=== PATIENT | female | born 1940 | race Caucasian/White ===

== ENCOUNTER 2018-10-06 07:46 | Inpatient (IN) | payer MEDICARE, OTHER ==
[2018-10-11] MEDS ORDERED: Bisacodyl 10 MG Supp RECTAL PRN (20:32)
[2018-10-11] MEDS ORDERED: Carboxymethylcellulose Sodium 0.5% Ophth Soln 15 ML Bottle EYEBOTH PRN (20:32)
[2018-10-11] MEDS ORDERED: Magnesium Hydroxide 400 MG/5 ML Susp 30 ML Cup PO PRN (20:32)
[2018-10-11] MEDS ORDERED: Acetaminophen 500 MG Tab PO PRN (20:32)
[2018-10-11] MEDS ORDERED: Primidone 250 MG Tab PO SCH (21:00)
[2018-10-11] MEDS: Metoprolol Tartrate 25 MG Tab PO SCH (22:39)
[2018-10-11] MEDS: Acetaminophen/HYDROcodone 325-10 MG Tab PO PRN (22:40)
[2018-10-11] MEDS: Lutein/Minerals/Vitamins A, C & E Tab PO SCH (22:40)
[2018-10-11] MEDS: Cefdinir 300 MG Cap PO SCH (22:41)
[2018-10-12] MEDS: METFORMIN 750 MG PO SCH ×2 (01:50→20:21)
[2018-10-12] MEDS: PRIMIDONE 250 MG PO SCH ×3 (01:54→20:21)
[2018-10-12] MEDS ORDERED: Levothyroxine 100 MCG Tab PO SCH (07:00)
[2018-10-12] MEDS ORDERED: Levothyroxine 25 MCG Tab PO SCH (07:30)
[2018-10-12] MEDS: Levothyroxine 100 MCG Tab PO SCH (07:44)
[2018-10-12] MEDS: Metoprolol Tartrate 25 MG Tab PO SCH ×2 (08:08→20:21)
[2018-10-12] MEDS: Cefdinir 300 MG Cap PO SCH ×2 (08:08→20:20)
[2018-10-12] MEDS: Clopidogrel 75 MG Tab PO SCH (08:08)
[2018-10-12] MEDS: Sertraline 50 MG Tab PO SCH (08:08)
[2018-10-12] MEDS: Cholecalciferol (Vitamin D3) 1,000 Unit Tab PO SCH (08:08)
[2018-10-12] MEDS: atorvaSTATin 40 MG Tab PO SCH (08:08)
[2018-10-12] MEDS: Lutein/Minerals/Vitamins A, C & E Tab PO SCH ×2 (08:08→20:20)
[2018-10-12] MEDS: Lisinopril 5 MG Tab PO SCH (08:08)
[2018-10-12] MEDS: Acetaminophen/HYDROcodone 325-10 MG Tab PO PRN ×2 (08:08→18:57)
[2018-10-12] MEDS: Aspirin 81 MG Tab.EC PO SCH (08:08)
[2018-10-12] MEDS ORDERED: Ferrous Sulfate 325 MG Tab PO SCH (09:00)
[2018-10-12] MEDS ORDERED: [UNRECOGNIZED DRUG - REMARK] PO SCH (09:00)
[2018-10-12] MEDS ORDERED: B COMPLEX WITH VITAMIN C PO SCH (09:00)
[2018-10-12] MEDS ORDERED: Cranberry Ext/C/L. Sporogenes Tab PO SCH (09:00)
[2018-10-12] MEDS ORDERED: FLAXSEED OIL 1000 MG PO SCH (09:00)
--- NOTE | 2018-10-12 12:54 | PCM.HP ---
H&P History of Present Illness - General Date of Service: 10/12/18 Admit Problem/Dx: Admission Diagnosis/Problem Admission Diagnosis/Problem Debility Source of Information: Patient, Old Records, RN Notes Reviewed History Limitations: Reports: No Limitations - History of Present Illness Initial Comments - Free Text/Narative: Kalyn is a 78-year-old female admitted to swing bed status from [facility] in [place], [place], for mcc stay for physical rehabilitation status post right total knee arthroplasty, which was performed on 10/03/18. Her subsequent hospital course at [facility] was complicated by an STEMI on with subsequent stent placement. This morning, she states she is doing well without any concerns. She has had improvement in mobility. She denies any cardiopulmonary symptoms. Tolerating diet well. - Related Data Allergies/Adverse Reactions: Allergies Allergy/AdvReac Type Severity Reaction Status Date / Time amantadine Allergy Other Verified 10/11/18 17:44 levetiracetam [From Keppra] Allergy Other Verified 10/11/18 17:44 nitrofurantoin Allergy Burning on Verified 10/11/18 17:44 [From Macrobid] Urination sulfasalazine Allergy Burning on Verified 10/11/18 17:44 Urination Home Medications: Home Meds Aspirin [Halfprin] 81 mg PO DAILY 06/03/18 [History] B-Complex with Vitamin C [Super B Complex-Vitamin C] 1 each PO DAILY 06/03/18 [ History] Cholecalciferol (Vitamin D3) [Vitamin D3] 2,000 unit PO DAILY 06/03/18 [History] Cranberry Conc/C/Bacill Coag [Cranberry Tablet] 1 each PO DAILY 06/03/18 [ History] Flaxseed Oil [Flaxseed] 1,000 mg PO DAILY 06/03/18 [History] Levothyroxine 200 mcg PO ACBRK 06/03/18 [History] Plant Stanol Susan [Cholest Off] 450 mg PO DAILY 06/03/18 [History] Primidone 250 mg PO DAILY 06/03/18 [History] Sertraline [Zoloft] 100 mg PO DAILY 06/03/18 [History] metFORMIN [Glucophage XR] 500 mg PO BEDTIME 06/03/18 [History] Acetaminophen [Acetaminophen Extra Strength] 1,000 mg PO Q6HR PRN 10/11/18 [ History] Bisacodyl [Dulcolax] 10 mg RC BID PRN 10/11/18 [History] Cefdinir 300 mg PO BID 10/11/18 [History] Clopidogrel [Plavix] 75 mg PO DAILY 10/11/18 [History] Ferrous Sulfate 325 mg PO DAILY 10/11/18 [History] Hydrocodone/Acetaminophen [Flagler 10-325 Tablet] 10 mg PO Q4HR PRN 10/11/18 [ History] Levothyroxine 25 mcg PO ACBREAKFAST 10/11/18 [History] Lisinopril 5 mg PO DAILY 10/11/18 [History] Lutein/Min/Vit C/Vit E Acetate [Ocuvite Lutein] 1 tab PO BID 10/11/18 [History] Magnesium Hydroxide [Milk of Magnesia] 30 ml PO BID PRN 10/11/18 [History] Metoprolol Tartrate 25 mg PO BID 10/11/18 [History] Primidone 500 mg PO BEDTIME 10/11/18 [History] Propylene Glycol/PEG 400/Pf [Systane Ultra 0.4-0.3% Eye Drp] 1 each OP QID PRN 10/11/18 [History] Sennosides/Docusate Sodium [Senokot-S Tablet] 2 each PO DAILY 10/11/18 [History] atorvaSTATin [Lipitor] 40 mg PO DAILY 10/11/18 [History] traMADol [Ultram] 50 mg PO Q6H PRN 10/11/18 [History] Past Medical History HEENT History: Reports: Impaired Vision Cardiovascular History: Reports: High Cholesterol, [place] Gastrointestinal History: Reports: [employer] History: Reports: Musculoskeletal History: Reports: Fracture Neurological History: Reports: Seizure Endocrine/Metabolic History: Reports: Diabetes, Type II - Past Surgical History Cardiovascular Surgical History: Reports: Other (See Below) Other Cardiovascular Surgeries/Procedures: September 2018 GI Surgical History: Reports: Other (See Below) Other GI Surgeries/Procedures: esophageal wrap Endocrine Surgical History: Reports: None Neurological Surgical History: Reports: None Musculoskeletal Surgical History: Reports: Knee Replacement, Other (See Below) Other Musculoskeletal Surgeries/Procedures:: R knee Social & Family History - Family History Cardiac: Reports: CAD Neurological: Reports: Parkinson's Oncologic: Reports: Prostate - Tobacco Use Smoking Status *Q: Never Smoker - Caffeine Use Caffeine Use: Reports: Energy Drinks, Tea, Other Other Caffeine Use: 1/2 can of Mountain Dew a day - Recreational Drug Use Recreational Drug Use: No H&P Review of Systems - Review of Systems: Review Of Systems: See Below General: Reports: Weakness. Denies: Fever, Chills, Malaise, Fatigue, Decreased Appetite HEENT: Denies: Dysphasia, Headaches, Sore Throat Pulmonary: Denies: Shortness of Breath, Pleuritic Chest Pain, Cough Cardiovascular: Denies: Chest Pain, Palpitations, Orthopnea, Edema, Lightheadedness Gastrointestinal: Denies: Abdominal Pain, Black Stool, Bloody Stool, Constipation, Diarrhea, Decreased Appetite, Nausea, Vomiting Genitourinary: Denies: Dysuria, Frequency, Burning, Pain Musculoskeletal: Denies: Neck Pain, Shoulder Pain, Arm Pain Skin: Reports: Wound. Denies: Cyanosis, Jaundice Psychiatric: Denies: Confusion, Depression, Anxiety Neurological: Denies: Confusion, Dizziness, Headache, Numbness, Paresthesia Exam - Exam Exam: See Below - Vital Signs Vital Signs: Last Vital Signs Temp 37.1 C 10/12/18 06:07 Pulse 80 10/12/18 08:08 Resp 16 10/12/18 06:07 BP 142/75 H 10/12/18 08:08 Pulse Ox 97 10/12/18 07:56 Weight: 75.931 kg - Exam Physical Exam Comments:: GENERAL: Well-appearing elderly white female sitting in bedside chair in no acute distress. HEENT: Normocephalic, atraumatic. Conjunctiva clear. Nares patent without discharge. Mucous membranes moist, posterior pharynx unremarkable. NECK: Supple, no masses. CV: Regular rate and rhythm, no murmurs, rubs, or gallops. 2+ radial pulses. PULMONARY: Normal effort, clear to auscultation bilaterally, no wheezes, rales, or rhonchi. ABDOMEN: Positive bowel sounds, soft, nontender, nondistended. EXTREMITIES: No edema, cyanosis, or clubbing. MUSCULOSKELETAL: Moves all extremities well. NEUROLOGICAL: Facial and voice tremor.No obvious deficits. DERMATOLOGIC: No rashes or suspicious lesions in exposed areas. PSYCHIATRIC: Alert, interactive, appropriate affect. Problem List Initiated/Reviewed/Updated: Yes Orders Last 24hrs: Active Orders 24 hr Category Date Time Status Patient Status [ADT] Routine ADT 10/11/18 20:41 Ordered Antiembolic Devices [RC] .Routine Care 10/12/18 02:14 Active Communication Order [RC] DAILY Care 10/12/18 02:09 Active Communication Order [RC] DAILY Care 10/12/18 02:11 Active Height and Weight [RC] We@0700 Care 10/11/18 20:43 Active Intake and Output [RC] 1400,2200,0600 Care 10/11/18 20:44 Active Oxygen Therapy [RC] PRN Care 10/11/18 20:41 Active Up ad Gricelda [RC] ASDIRECTED Care 10/11/18 20:41 Active VTE/DVT Education [RC] PER UNIT ROUTINE Care 10/11/18 20:41 Active Vital Signs [RC] 0700,1900 Care 10/11/18 20:41 Active PT Evaluation and Treatment [CONS] Routine Cons 10/11/18 20:41 Active Heart Healthy Diet [DIET] Diet 10/12/18 Breakfast Active Acetaminophen [Tylenol Extra Strength] Med 10/11/18 20:32 Active 1,000 mg PO Q6HR PRN Acetaminophen/HYDROcodone [Flagler 325-10 MG] Med 10/11/18 20:32 Active 1 tab PO Q4HR PRN Aspirin [Halfprin] Med 10/12/18 09:00 Active 81 mg PO DAILY Bisacodyl [Dulcolax] Med 10/11/18 20:32 Active 10 mg RECTAL BID PRN Carboxymethylcellulose Sodium [Refresh Tears 0.5%] Med 10/11/18 20:32 Active 0 ml EYEBOTH QID PRN Cefdinir [Omnicef] Med 10/11/18 21:00 Active 300 mg PO BID Cholecalciferol (Vitamin D3) [Vitamin D3] Med 10/12/18 09:00 Active 2,000 units PO DAILY Clopidogrel [Plavix] Med 10/12/18 09:00 Active 75 mg PO DAILY Cranberry Ext/C/L. Sporogenes [Azo Cranberry] Med 10/12/18 09:00 Active 1 each PO DAILY Docusate Sodium/Sennosides [Senna Plus] Med 10/12/18 09:00 Active 2 tab PO DAILY Ferrous Sulfate Med 10/12/18 09:00 Active 325 mg PO DAILY Levothyroxine Med 10/12/18 07:30 Active 25 mcg PO ACBREAKFAST Levothyroxine [Synthroid] Med 10/12/18 07:30 Active 200 mcg PO ACBREAKFAST Lisinopril [Prinivil] Med 10/12/18 09:00 Active 5 mg PO DAILY Lutein/Minerals/Vit A,C & E [Ocuvite] Med 10/11/18 21:00 Active 1 each PO BID Magnesium Hydroxide [Milk of Magnesia] Med 10/11/18 20:32 Active 30 ml PO BID PRN Metoprolol Tartrate [Lopressor] Med 10/11/18 21:00 Active 25 mg PO BID Primidone [Mysoline] Med 10/12/18 09:00 Active 250 mg PO DAILY Primidone [Mysoline] Med 10/11/18 23:45 Active 500 mg PO BEDTIME Sertraline [Zoloft] Med 10/12/18 09:00 Active 100 mg PO DAILY atorvaSTATin [Lipitor] Med 10/12/18 09:00 Active 40 mg PO DAILY metFORMIN [Glucophage XR] Med 10/11/18 21:00 Active 500 mg PO BEDTIME traMADol [Ultram] Med 10/11/18 20:32 Active 50 mg PO Q6H PRN Ice Pack [Ice Therapy] [OM.PC] Routine Oth 10/12/18 02:13 Ordered Resuscitation Status Routine Resus Stat 10/11/18 20:35 Ordered Medication Orders Acetaminophen (Tylenol Extra Strength) 1,000 mg PO Q6HR PRN PRN Reason: Pain Last Admin: 10/11/18 22:40 Dose: 1,000 mg Hydrocodone Bitart/Acetaminophen (Flagler 325-10 Mg) 1 tab PO Q4HR PRN PRN Reason: Pain Last Admin: 10/12/18 08:08 Dose: 1 tab Admin: 10/11/18 22:40 Dose: 1 tab Artificial Tears (Refresh Tears 0.5%) 0 ml EYEBOTH QID PRN PRN Reason: Dry Eyes Last Admin: 10/11/18 22:46 Dose: 1 drop Aspirin (Halfprin) 81 mg PO DAILY [facility] Last Admin: 10/12/18 08:08 Dose: 81 mg Atorvastatin Calcium (Lipitor) 40 mg PO DAILY [facility] Last Admin: 10/12/18 08:08 Dose: 40 mg Bisacodyl (Dulcolax) 10 mg RECTAL BID PRN PRN Reason: Constipation Cefdinir (Omnicef) 300 mg PO BID [facility] Last Admin: 10/12/18 08:08 Dose: 300 mg Admin: 10/11/18 22:41 Dose: 300 mg Cholecalciferol (Vitamin D3) 2,000 units PO DAILY [facility] Last Admin: 10/12/18 08:08 Dose: 2,000 units Clopidogrel Bisulfate (Plavix) 75 mg PO DAILY [facility] Last Admin: 10/12/18 08:08 Dose: 75 mg Cranberry (Azo Cranberry) 1 each PO DAILY [facility] Last Admin: 10/12/18 08:07 Dose: Ferrous Sulfate (Ferrous Sulfate) 325 mg PO DAILY [facility] Last Admin: 10/12/18 08:08 Dose: 325 mg Levothyroxine Sodium (Levothyroxine) 25 mcg PO ACBREAKFAST [facility] Last Admin: 10/12/18 07:44 Dose: 25 mcg Levothyroxine Sodium (Synthroid) 200 mcg PO ACBREAKFAST [facility] Last Admin: 10/12/18 07:44 Dose: 200 mcg Lisinopril (Prinivil) 5 mg PO DAILY [facility] Last Admin: 10/12/18 08:08 Dose: 5 mg Magnesium Hydroxide (Milk Of Magnesia) 30 ml PO BID PRN PRN Reason: Constipation Last Admin: 10/11/18 22:44 Dose: 30 ml Metformin HCl (Glucophage Xr) 500 mg PO BEDTIME [facility] Last Admin: 10/12/18 01:50 Dose: Metoprolol Tartrate (Lopressor) 25 mg PO BID [facility] Last Admin: 10/12/18 08:08 Dose: 25 mg Admin: 10/11/18 22:39 Dose: 25 mg Multivitamins/Minerals (Ocuvite) 1 each PO BID [facility] Last Admin: 10/12/18 08:08 Dose: 1 each Admin: 10/11/18 22:40 Dose: 1 each Primidone (Mysoline) 250 mg PO DAILY [facility] Last Admin: 10/12/18 08:09 Dose: 250 mg Primidone (Mysoline) 500 mg PO BEDTIME [facility] Last Admin: 10/12/18 01:54 Dose: 500 mg Senna/Docusate Sodium (Senna Plus) 2 tab PO DAILY [facility] Last Admin: 10/12/18 08:08 Dose: 2 tab Sertraline HCl (Zoloft) 100 mg PO DAILY [facility] Last Admin: 10/12/18 08:08 Dose: 100 mg Tramadol HCl (Ultram) 50 mg PO Q6H PRN PRN Reason: Pain Assessment/Plan Comment:: HPI summary: Kalyn is a 78-year-old female admitted to swing bed status from [facility] in [place], [place], a for mcc stay for physical rehabilitation status post right total knee arthroplasty, which was performed on 10/03/18. Her subsequent hospital course at [facility] was complicated by an NSTEMI on 10/05/18 with subsequent stent placement. Hospitalization problems: # Debility s/p R TKA: Surgery 10/03/18 at [facility]. Physical therapy referral. Remove Aquacel on 10/14/18. Remove luisito on 10/18/18. Orthopedic surgery follow-up to be coordinated with Dr. Foster locally. Chronic, stable conditions: # Hx NSTEMI: 10/05/18 with chest pain and elevated troponin >3. 10/07/18 catheterization with 3 vessel disease with proximal left main stenosis. 10/09/18 catheterization with stenting of mid and proximal LAD and diagonal arteries with Resolute JAN. Continue DAPT with clopidogrel and ASA x1 year. Also continue beta minh and ACEI. Plan for cardiac rehab referral at discharge. # Aortic atherosclerosis: 10/06/18 JIMMY with visualized plaque in ascending/ transverse/descending aorta. # Ischemic cardiomyopathy: 10/05/18 echo with EF 40-45% and severe hypokinesis of anterior/anteroseptal/apex. # Pulmonary HTN: 10/05/18 echo with RVSP 68mmHg. # DMT2: 09/18/18 A1c 5.5%. [id number] was restarted during hospitalization, but will be discontinued again due to not even being in the pre -diabetic range. # HLD: Atorvastatin 40mg. # Hypothyroidism: 09/18/18 TSH 0.20 when dose was last adjusted. Levothyroxine 200mcg. # Vitamin D deficiency: Vitamin D supplementation. # Thrombocytopenia: Chronically in thelow-100s. # Epilepsy/ Essential tremor: Primidone. Seizure free since 2000. # Depression:[id number]. Well controlled. # Macular degeneration: Per ophthalmology. Hospitalization details: # FEN: No IVF. Electrolytes normal at discharge. Heart healthy diet. # PPX: DAPT and ambulation; no other pharmacologic DVT ppx. Melatonin for delirium ppx. # Code status: DNR/DNI. # Emergency contact: , Bryan. # Disposition: Admit to significant status for debility. Anticipate eventual discharge to assisted living facility where she has previously lived.
[2018-10-12] MEDS: traMADol 50 MG Tab PO PRN (13:11)
[2018-10-12] MEDS ORDERED: Polyethylene Glycol 3350 Powder 17 GM Packet PO PRN (22:27)
[2018-10-13] MEDS: Acetaminophen/HYDROcodone 325-10 MG Tab PO PRN ×4 (00:34→23:08)
[2018-10-13] MEDS: Levothyroxine 100 MCG Tab PO SCH (07:58)
[2018-10-13 08:39] LABS: CHLORIDE,CL 103 mmol/L (98-115); SODIUM,NA 138 mmol/L (136-145)
[2018-10-13] MEDS: Sertraline 50 MG Tab PO SCH (09:02)
[2018-10-13] MEDS: Clopidogrel 75 MG Tab PO SCH (09:02)
[2018-10-13] MEDS: Cholecalciferol (Vitamin D3) 1,000 Unit Tab PO SCH (09:02)
[2018-10-13] MEDS: Lisinopril 5 MG Tab PO SCH (09:02)
[2018-10-13] MEDS: atorvaSTATin 40 MG Tab PO SCH (09:02)
[2018-10-13] MEDS: Metoprolol Tartrate 25 MG Tab PO SCH ×2 (09:02→20:24)
[2018-10-13] MEDS: Aspirin 81 MG Tab.EC PO SCH (09:02)
[2018-10-13] MEDS: Lutein/Minerals/Vitamins A, C & E Tab PO SCH ×2 (09:02→20:26)
[2018-10-13] MEDS: Cefdinir 300 MG Cap PO SCH (09:06)
[2018-10-13] MEDS: PRIMIDONE 250 MG PO SCH ×2 (09:07→20:29)
[2018-10-13] MEDS: traMADol 50 MG Tab PO PRN ×2 (13:42→20:25)
[2018-10-14] MEDS: traMADol 50 MG Tab PO PRN ×4 (02:02→22:55)
[2018-10-14] MEDS: Melatonin 3 MG Tab PO PRN ×2 (02:07→22:43)
[2018-10-14] MEDS: Metoprolol Tartrate 25 MG Tab PO SCH ×2 (09:43→22:56)
[2018-10-14] MEDS: atorvaSTATin 40 MG Tab PO SCH (09:43)
[2018-10-14] MEDS: Clopidogrel 75 MG Tab PO SCH (09:43)
[2018-10-14] MEDS: Lisinopril 5 MG Tab PO SCH (09:43)
[2018-10-14] MEDS: Cholecalciferol (Vitamin D3) 1,000 Unit Tab PO SCH (09:43)
[2018-10-14] MEDS: Lutein/Minerals/Vitamins A, C & E Tab PO SCH ×2 (09:43→20:32)
[2018-10-14] MEDS: Aspirin 81 MG Tab.EC PO SCH (09:43)
[2018-10-14] MEDS: Sertraline 50 MG Tab PO SCH (09:44)
[2018-10-14] MEDS: PRIMIDONE 250 MG PO SCH ×2 (09:45→20:32)
[2018-10-14] MEDS: Ferrous Sulfate 325 MG Tab PO SCH (09:50)
[2018-10-14] MEDS: Levothyroxine 100 MCG Tab PO SCH ×2 (11:05→11:07)
[2018-10-14] MEDS: Acetaminophen/HYDROcodone 325-10 MG Tab PO PRN ×2 (11:56→20:27)
[2018-10-14] MEDS: Diclofenac Sodium 1% Gel 100 GM Tube TOP PRN ×2 (11:56→22:47)
[2018-10-15] MEDS: Acetaminophen/HYDROcodone 325-10 MG Tab PO PRN ×2 (00:47→05:02)
[2018-10-15] MEDS: Levothyroxine 100 MCG Tab PO SCH (07:41)
[2018-10-15] MEDS: PRIMIDONE 250 MG PO SCH ×2 (08:48→20:32)
[2018-10-15] MEDS: Lutein/Minerals/Vitamins A, C & E Tab PO SCH ×2 (08:48→20:32)
[2018-10-15] MEDS: Metoprolol Tartrate 25 MG Tab PO SCH ×2 (08:48→20:29)
[2018-10-15] MEDS: Sertraline 50 MG Tab PO SCH (08:49)
[2018-10-15] MEDS: Cholecalciferol (Vitamin D3) 1,000 Unit Tab PO SCH (08:49)
[2018-10-15] MEDS: atorvaSTATin 40 MG Tab PO SCH (08:49)
[2018-10-15] MEDS: Aspirin 81 MG Tab.EC PO SCH (08:49)
[2018-10-15] MEDS: Clopidogrel 75 MG Tab PO SCH (08:49)
[2018-10-15] MEDS: Lisinopril 5 MG Tab PO SCH (08:49)
[2018-10-15] MEDS ORDERED: oxyCODONE 5 MG Tab PO PRN (11:34)
[2018-10-15] MEDS: Acetaminophen 500 MG Tab PO SCH ×2 (11:41→21:56)
[2018-10-15] MEDS ORDERED: Trolamine Salicylate/Aloe Vera 10% Crm 85 GM Tube TOP PRN (11:58)
[2018-10-15] MEDS: traMADol 50 MG Tab PO SCH ×2 (14:54→21:57)
[2018-10-16] MEDS: traMADol 50 MG Tab PO SCH ×3 (06:12→20:59)
[2018-10-16] MEDS: Levothyroxine 100 MCG Tab PO SCH (07:51)
[2018-10-16] MEDS: Sertraline 50 MG Tab PO SCH (08:27)
[2018-10-16] MEDS: atorvaSTATin 40 MG Tab PO SCH (08:27)
[2018-10-16] MEDS: Lutein/Minerals/Vitamins A, C & E Tab PO SCH ×2 (08:28→20:27)
[2018-10-16] MEDS: Clopidogrel 75 MG Tab PO SCH (08:28)
[2018-10-16] MEDS: Aspirin 81 MG Tab.EC PO SCH (08:29)
[2018-10-16] MEDS: Cholecalciferol (Vitamin D3) 1,000 Unit Tab PO SCH (08:29)
[2018-10-16] MEDS: Lisinopril 5 MG Tab PO SCH (08:30)
[2018-10-16] MEDS: Metoprolol Tartrate 25 MG Tab PO SCH ×2 (08:32→20:27)
[2018-10-16] MEDS: PRIMIDONE 250 MG PO SCH ×2 (08:33→20:58)
[2018-10-16] MEDS: Ferrous Sulfate 325 MG Tab PO SCH (08:37)
[2018-10-16] MEDS: Acetaminophen 500 MG Tab PO SCH ×3 (10:35→21:00)
[2018-10-17] MEDS: traMADol 50 MG Tab PO SCH ×3 (06:15→21:15)
[2018-10-17] MEDS: Levothyroxine 100 MCG Tab PO SCH (07:31)
[2018-10-17] MEDS: Metoprolol Tartrate 25 MG Tab PO SCH ×2 (08:28→21:16)
[2018-10-17] MEDS: Clopidogrel 75 MG Tab PO SCH (08:28)
[2018-10-17] MEDS: atorvaSTATin 40 MG Tab PO SCH (08:28)
[2018-10-17] MEDS: Cholecalciferol (Vitamin D3) 1,000 Unit Tab PO SCH (08:28)
[2018-10-17] MEDS: Lutein/Minerals/Vitamins A, C & E Tab PO SCH ×2 (08:28→21:16)
[2018-10-17] MEDS: Lisinopril 5 MG Tab PO SCH (08:28)
[2018-10-17] MEDS: Sertraline 50 MG Tab PO SCH (08:28)
[2018-10-17] MEDS: Aspirin 81 MG Tab.EC PO SCH (08:28)
[2018-10-17] MEDS: PRIMIDONE 250 MG PO SCH ×2 (08:29→21:14)
[2018-10-17] MEDS: Acetaminophen 500 MG Tab PO SCH ×2 (09:55→21:15)
[2018-10-18] MEDS: traMADol 50 MG Tab PO SCH ×3 (06:04→21:11)
[2018-10-18] MEDS: Levothyroxine 100 MCG Tab PO SCH (06:29)
[2018-10-18] MEDS: Aspirin 81 MG Tab.EC PO SCH (08:27)
[2018-10-18] MEDS: Cholecalciferol (Vitamin D3) 1,000 Unit Tab PO SCH (08:27)
[2018-10-18] MEDS: Metoprolol Tartrate 25 MG Tab PO SCH ×2 (08:27→20:33)
[2018-10-18] MEDS: Sertraline 50 MG Tab PO SCH (08:27)
[2018-10-18] MEDS: Clopidogrel 75 MG Tab PO SCH (08:27)
[2018-10-18] MEDS: Lutein/Minerals/Vitamins A, C & E Tab PO SCH ×2 (08:27→20:33)
[2018-10-18] MEDS: atorvaSTATin 40 MG Tab PO SCH (08:27)
[2018-10-18] MEDS: Lisinopril 5 MG Tab PO SCH (08:27)
[2018-10-18] MEDS: PRIMIDONE 250 MG PO SCH ×2 (08:28→20:34)
[2018-10-18] MEDS: Ferrous Sulfate 325 MG Tab PO SCH ×2 (08:29→08:36)
[2018-10-18] MEDS: Acetaminophen 500 MG Tab PO SCH ×2 (10:02→21:11)
[2018-10-19] MEDS: traMADol 50 MG Tab PO SCH ×3 (06:29→21:02)
[2018-10-19] MEDS: Levothyroxine 100 MCG Tab PO SCH (06:29)
[2018-10-19] MEDS: Cholecalciferol (Vitamin D3) 1,000 Unit Tab PO SCH (08:14)
[2018-10-19] MEDS: Metoprolol Tartrate 25 MG Tab PO SCH ×2 (08:15→21:02)
[2018-10-19] MEDS: Lisinopril 5 MG Tab PO SCH (08:15)
[2018-10-19] MEDS: Sertraline 50 MG Tab PO SCH (08:15)
[2018-10-19] MEDS: Lutein/Minerals/Vitamins A, C & E Tab PO SCH ×2 (08:15→21:02)
[2018-10-19] MEDS: atorvaSTATin 40 MG Tab PO SCH (08:15)
[2018-10-19] MEDS: PRIMIDONE 250 MG PO SCH ×2 (08:15→21:01)
[2018-10-19] MEDS: Clopidogrel 75 MG Tab PO SCH (08:15)
[2018-10-19] MEDS: Aspirin 81 MG Tab.EC PO SCH (08:15)
[2018-10-19] MEDS: Acetaminophen 500 MG Tab PO SCH ×2 (09:51→21:03)
[2018-10-20] MEDS: Levothyroxine 100 MCG Tab PO SCH (06:40)
[2018-10-20] MEDS: traMADol 50 MG Tab PO SCH (06:40)
[2018-10-20] MEDS: Cholecalciferol (Vitamin D3) 1,000 Unit Tab PO SCH (08:54)
[2018-10-20] MEDS: Sertraline 50 MG Tab PO SCH (08:54)
[2018-10-20] MEDS: Metoprolol Tartrate 25 MG Tab PO SCH (08:54)
[2018-10-20] MEDS: Clopidogrel 75 MG Tab PO SCH (08:54)
[2018-10-20] MEDS: Acetaminophen 500 MG Tab PO SCH ×2 (08:54→09:01)
[2018-10-20] MEDS: Lisinopril 5 MG Tab PO SCH (08:55)
[2018-10-20] MEDS: atorvaSTATin 40 MG Tab PO SCH (08:55)
[2018-10-20] MEDS: Lutein/Minerals/Vitamins A, C & E Tab PO SCH (08:55)
[2018-10-20] MEDS: Aspirin 81 MG Tab.EC PO SCH (08:55)
[2018-10-20] MEDS: Ferrous Sulfate 325 MG Tab PO SCH (08:58)
[2018-10-20] MEDS: PRIMIDONE 250 MG PO SCH (09:01)
--- NOTE | 2018-10-20 12:02 | PCM.PN ---
- General Info Date of Service: 10/20/18 Admission Dx/Problem (Free Text): Admission Diagnosis/Problem Admission Diagnosis/Problem Debility Subjective Update: Doing well. Pain well controlled. Therapy progressing nicely with ROM. Functional Status: Reports: Pain Controlled - Review of Systems General: Reports: No Symptoms Skin: Reports: Bruising, Other (Incision C/D/I, mild/moderate swelling. AROM 0- 100. Moderate ecchymosis.) - Patient Data Vitals - Most Recent: Last Vital Signs Temp 99.0 F 10/20/18 07:00 Pulse 81 10/20/18 08:54 Resp 16 10/20/18 07:00 BP 135/67 10/20/18 08:55 Pulse Ox 94 L 10/20/18 07:00 Weight - Most Recent: 158 lb 4 oz I&O - Last 24 Hours: Intake & Output 10/19/18 10/20/18 10/20/18 22:59 06:59 14:59 Intake Total 540 50 Balance 540 50 Med Orders - Current: Current Medications Acetaminophen (Tylenol Extra Strength) 1,000 mg PO Q12H [facility] Last Admin: 10/20/18 09:01 Dose: Not Given Artificial Tears (Refresh Tears 0.5%) 0 ml EYEBOTH QID PRN PRN Reason: Dry Eyes Last Admin: 10/11/18 22:46 Dose: 1 drop Aspirin (Halfprin) 81 mg PO DAILY [facility] Last Admin: 10/20/18 08:55 Dose: 81 mg Atorvastatin Calcium (Lipitor) 40 mg PO DAILY [facility] Last Admin: 10/20/18 08:55 Dose: 40 mg Bisacodyl (Dulcolax) 10 mg RECTAL BID PRN PRN Reason: Constipation Cholecalciferol (Vitamin D3) 2,000 units PO DAILY [facility] Last Admin: 10/20/18 08:54 Dose: 2,000 units Clopidogrel Bisulfate (Plavix) 75 mg PO DAILY [facility] Last Admin: 10/20/18 08:54 Dose: 75 mg Ferrous Sulfate (Ferrous Sulfate) 325 mg PO Q2D [facility] Last Admin: 10/20/18 08:58 Dose: 325 mg Levothyroxine Sodium (Synthroid) 200 mcg PO ACBREAKFAST [facility] Last Admin: 10/20/18 06:40 Dose: 200 mcg Lisinopril (Prinivil) 5 mg PO DAILY [facility] Last Admin: 10/20/18 08:55 Dose: 5 mg Melatonin (Melatonin) 3 mg PO BEDTIME PRN PRN Reason: Insomnia Last Admin: 10/14/18 22:43 Dose: 3 mg Metoprolol Tartrate (Lopressor) 25 mg PO BID [facility] Last Admin: 10/20/18 08:54 Dose: 25 mg Multivitamins/Minerals (Ocuvite) 1 each PO BID [facility] Last Admin: 10/20/18 08:55 Dose: 1 each Oxycodone HCl (Oxycodone) 5 mg PO Q6H PRN PRN Reason: Pain Polyethylene Glycol (Miralax) 17 gm PO BEDTIME PRN PRN Reason: Constipation Primidone (Mysoline) 250 mg PO DAILY [facility] Last Admin: 10/20/18 09:01 Dose: 250 mg Primidone (Mysoline) 500 mg PO BEDTIME [facility] Last Admin: 10/19/18 21:01 Dose: 500 mg Senna/Docusate Sodium (Senna Plus) 2 tab PO DAILY [facility] Last Admin: 10/20/18 08:54 Dose: 2 tab Sertraline HCl (Zoloft) 100 mg PO DAILY [facility] Last Admin: 10/20/18 08:54 Dose: 100 mg Tramadol HCl (Ultram) 50 mg PO Q8H [facility] Last Admin: 10/20/18 06:40 Dose: 50 mg Trolamine Salicylate (Aspercreme 10%) 0 gm TOP Q1H PRN PRN Reason: Pain Discontinued Medications Acetaminophen (Tylenol Extra Strength) 1,000 mg PO Q6HR PRN PRN Reason: Pain Last Admin: 10/11/18 22:40 Dose: 1,000 mg Hydrocodone Bitart/Acetaminophen (Ross 325-10 Mg) 1 tab PO Q4HR PRN PRN Reason: Pain Last Admin: 10/15/18 05:02 Dose: 1 tab Cefdinir (Omnicef) 300 mg PO BID [facility] Last Admin: 10/13/18 09:06 Dose: 300 mg Cranberry (Azo Cranberry) 1 each PO DAILY [facility] Last Admin: 10/12/18 08:07 Dose: Not Given Diclofenac Sodium (Voltaren 1% Gel) 0 gm TOP QID PRN PRN Reason: Pain Last Admin: 10/14/18 22:47 Dose: 1 applic Ferrous Sulfate (Ferrous Sulfate) 325 mg PO DAILY [facility] Last Admin: 10/12/18 08:08 Dose: 325 mg Levothyroxine Sodium (Levothyroxine) 25 mcg PO ACBREAKFAST [facility] Last Admin: 10/12/18 07:44 Dose: 25 mcg Levothyroxine Sodium (Synthroid) 200 mcg PO ACBREAKFAST [facility] Last Admin: 10/14/18 11:07 Dose: Not Given Magnesium Hydroxide (Milk Of Magnesia) 30 ml PO BID PRN PRN Reason: Constipation Last Admin: 10/11/18 22:44 Dose: 30 ml Metformin HCl (Glucophage Xr) 500 mg PO BEDTIME [facility] Last Admin: 10/12/18 20:21 Dose: Not Given Primidone (Mysoline) 500 mg PO BEDTIME [facility] Last Admin: 10/12/18 07:10 Dose: Not Given Tramadol HCl (Ultram) 50 mg PO Q6H PRN PRN Reason: Pain Last Admin: 10/14/18 22:55 Dose: 50 mg - Exam General: Alert, Oriented, No Acute Distress Extremities: Joint Swelling (mild/moderate), Limited Range of Motion (0-100 AROM ). No: Increased Warmth, Redness Skin: Warm, Dry, Intact Wound/Incisions: Healing Well, Dressing Dry and Intact, No Drainage. No: Erythema Neurological: No New Focal Deficit Psy/Mental Status: Alert, Normal Affect, Normal Mood - Problem List Review Problem List Initiated/Reviewed/Updated: Yes - Assessment Assessment:: s/p RTKA - Plan Plan:: HPI summary: Kalyn is a 78-year-old female admitted to swing bed status from [facility] in [place], [place], a for shelter stay for physical rehabilitation status post right total knee arthroplasty, which was performed on 10/03/18. Her subsequent hospital course at [facility] was complicated by an NSTEMI on 10/05/18 with subsequent stent placement. Hospitalization problems: # Debility s/p R TKA: Surgery 10/03/18 at [facility]. Physical therapy referral. Remove Aquacel on 10/14/18. Remove luisito on 10/18/18. Orthopedic surgery follow-up to be coordinated with Dr. Foster locally. Chronic, stable conditions: # Hx NSTEMI: 10/05/18 with chest pain and elevated troponin >3. 10/07/18 catheterization with 3 vessel disease with proximal left main stenosis. 10/09/18 catheterization with stenting of mid and proximal LAD and diagonal arteries with Resolute JAN. Continue DAPT with clopidogrel and ASA x1 year. Also continue beta minh and ACEI. Plan for cardiac rehab referral at discharge. # Aortic atherosclerosis: 10/06/18 JIMMY with visualized plaque in ascending/ transverse/descending aorta. # Ischemic cardiomyopathy: 10/05/18 echo with EF 40-45% and severe hypokinesis of anterior/anteroseptal/apex. # Pulmonary HTN: 10/05/18 echo with RVSP 68mmHg. # DMT2: 09/18/18 A1c 5.5%. [id number] was restarted during hospitalization, but will be discontinued again due to not even being in the pre -diabetic range. # HLD: Atorvastatin 40mg. # Hypothyroidism: 09/18/18 TSH 0.20 when dose was last adjusted. Levothyroxine 200mcg. # Vitamin D deficiency: Vitamin D supplementation. # Thrombocytopenia: Chronically in thelow-100s. # Epilepsy/ Essential tremor: Primidone. Seizure free since 2000. # Depression:[id number]. Well controlled. # Macular degeneration: Per ophthalmology. Hospitalization details: # FEN: No IVF. Electrolytes normal at discharge. Heart healthy diet. # PPX: DAPT and ambulation; no other pharmacologic DVT ppx. Melatonin for delirium ppx. # Code status: DNR/DNI. # Emergency contact: , Bryan. # Disposition: Admit to significant status for debility. Anticipate eventual discharge to assisted living facility where she has previously lived. Staple removal and steristrip incision today. continue with therapy for TKA protocol. F/u in [facility] in 4 weeks with new xray right knee and ROM check.
--- NOTE | 2018-10-20 12:05 | PCM.DCSUM1 ---
Discharge Summary - Hospital Course Free Text/Narrative:: Date of admission: 10/11/18 Date of discharge: 10/20/18 Admission diagnoses: # Debility s/p R TKA # Recent iron deficiency anemia secondary to operative loss # Hx NSTEMI # Ischemic cardiomyopathy # Aortic atherosclerosis # Pulmonary HTN # DMT2 # HLD # Hypothyroidism # Vitamin D deficiency # Thrombocytopenia # Epilepsy # Essential tremor # Depression # Macular degeneration # Dry eyes Discharge diagnoses: # Debility s/p R TKA # Recent iron deficiency anemia secondary to operative loss # Hx NSTEMI # Ischemic cardiomyopathy # Aortic atherosclerosis # Pulmonary HTN # DMT2 # HLD # Hypothyroidism # Vitamin D deficiency # Thrombocytopenia # Epilepsy # Essential tremor # Depression # Macular degeneration # Dry eyes Consultations: - Physical therapy - Case management Procedures: None Hospital course: Kalyn is a 78-year-old female admitted to swing bed status from [facility] in [place], [place], a for long-term stay for physical rehabilitation status post right total knee arthroplasty, which was performed on 10/03/18. Her subsequent hospital course at [facility] was complicated by an NSTEMI on with subsequent stent placement. See had excellent clinical improvement throughout hospitalization and was deemed ready for discharge back to [facility]. She will follow-up with PCP Dr. Bonds on 10/31/18. Follow-up items underlined below in problem-based assessment and plan: # Debility s/p R TKA: Surgery 10/03/18 at [facility]. Made progress with physical therapy throughout stay. Continue with nursing, physical therapy and occupational therapy through [facility]. Pain controlled with acetaminophen and tramadol throughout stay along with Senna+ scheduled daily, Miralax prn, and bisacodyl prn for constipation. She was instructed to use Tylenol 1000mg TID scheduled and tramadol only as needed for breakthrough with the goal to minimize the use of tramadol and discontinue within the coming few weeks. Orthopedic surgery follow-up with Dr. Harvey in [place] planned on . # Recent iron deficiency anemia secondary to operative loss: Received 3 units PRBCs during acute hospitalization. 10/13/18 Hgb 9.5. Continue iron and vitamin C supplementation, which was changed to every other day given improved absorption. Recheck CBC in about 1 month and discontinue iron/vitamin C when Hgb normalized. # Hx NSTEMI: 10/05/18 with chest pain and elevated troponin >3. 10/07/18 catheterization with 3 vessel disease with proximal left main stenosis. 10/09/18 catheterization with stenting of mid and proximal LAD and diagonal arteries with Resolute JAN. Continue DAPT with clopidogrel 75mg and ASA 81mg for one year along with metoprolol tartrate 25mg BID and lisinopril 5mg. Plan for cardiac rehab referral after completion of physical therapy. Follow-up cardiology appt scheduled for 10/25/18 at 1140 in [place]. # Ischemic cardiomyopathy: 10/05/18 echo with EF 40-45% and severe hypokinesis of anterior/anteroseptal/apex. Medications as above. # Aortic atherosclerosis: 10/06/18 JIMMY with visualized plaque in ascending/ transverse/descending aorta. # Pulmonary HTN: 10/05/18 echo with RVSP 68mmHg. # DMT2: 09/18/18 A1c 5.5%. [id number] was restarted during acute hospitalization, but was discontinued again due to not even being in the pre- diabetic range. No regular BGs monitored. # HLD: Treating in the context of secondary prevention of CAD. Continue atorvastatin 40mg. # Hypothyroidism: 09/18/18 TSH 0.20 when dose was last adjusted. Continue levothyroxine 200mcg. # Vitamin D deficiency: Continue vitamin D supplementation. # Thrombocytopenia: Chronically in thelow-100s. No evidence of bleeding. # Epilepsy/ Essential tremor: Seizure free since 2000. Continue primidone 250mg AM/500mg HS. # Depression:Well controlled. Continue [id number]. # Macular degeneration # Dry eyes: Continue Refresh tears prn. This is the order and face to face encounter for home health services to include : 1) Nursing, physical therapy, occupational therapy 2) Clinical findings to support the need for home health: Strength and endurance , in home safety assessment/instruction, develop in home therapy program, pain and symptom control, health teaching for medication management 3) Support for home bound status: Limited strength/endurance due to fatigue/pain /muscle weakness related to recent surgery - Discharge Data Discharge Date: 10/20/18 Discharge Disposition: Home, Self-Care 01 Condition: Good - Patient Summary/Data Consults: Consultations 10/11/18 20:41 PT Evaluation and Treatment [CONS] Routine - Patient Instructions Diet: Heart Healthy Diet Activity: As Tolerated Showering/Bathing: May Shower Wound/Incision Care: Keep Operative Site/Wound Site Clean and Dry Notify Provider of: Fever, Increased Pain, Swelling and Redness - Discharge Plan *PRESCRIPTION DRUG MONITORING PROGRAM REVIEWED*: Yes *COPY OF PRESCRIPTION DRUG MONITORING REPORT IN PATIENT TISHA: Yes Prescriptions/Med Rec: Aspirin [Halfprin] 81 mg PO DAILY 30 Days tab.ec atorvaSTATin [Lipitor] 40 mg PO DAILY #30 tablet Clopidogrel [Plavix] 75 mg PO DAILY #30 tablet Ferrous Sulfate 325 mg PO DAILY #30 tablet Lisinopril 5 mg PO DAILY #30 tablet Metoprolol Tartrate 25 mg PO BID #60 tablet Sennosides/Docusate Sodium [Senokot-S Tablet] 2 each PO DAILY #60 tablet traMADol [Ultram] 50 mg PO Q8H PRN #30 tablet PRN Reason: Pain (Severe 7-10) Trolamine Salicylate/Aloe Vera [Aspercreme 10%] 1 g TOP Q1H PRN #1 tube PRN Reason: Pain Home Medications: Home Meds B-Complex with Vitamin C [Super B Complex-Vitamin C] 1 each PO DAILY 06/03/18 [ History] Cholecalciferol (Vitamin D3) [Vitamin D3] 2,000 unit PO DAILY 06/03/18 [History] Levothyroxine 200 mcg PO ACBRK 06/03/18 [History] Primidone 250 mg PO DAILY 06/03/18 [History] Sertraline [Zoloft] 100 mg PO DAILY 06/03/18 [History] Lutein/Min/Vit C/Vit E Acetate [Ocuvite Lutein] 1 tab PO BID 10/11/18 [History] Magnesium Hydroxide [Milk of Magnesia] 30 ml PO BID PRN 10/11/18 [History] Primidone 500 mg PO BEDTIME 10/11/18 [History] Propylene Glycol/PEG 400/Pf [Systane Ultra 0.4-0.3% Eye Drp] 1 each OP QID PRN 10/11/18 [History] Acetaminophen [Tylenol Extra Strength] 1,000 mg PO TID tablet 10/20/18 [Rx] Aspirin [Halfprin] 81 mg PO DAILY 30 Days tab.ec 10/20/18 [Rx] Clopidogrel [Plavix] 75 mg PO DAILY #30 tablet 10/20/18 [Rx] Ferrous Sulfate 325 mg PO DAILY #30 tablet 10/20/18 [Rx] Lisinopril 5 mg PO DAILY #30 tablet 10/20/18 [Rx] Metoprolol Tartrate 25 mg PO BID #60 tablet 10/20/18 [Rx] Polyethylene Glycol 3350 [MiraLAX] 17 gm PO BEDTIME PRN packet 10/20/18 [Rx] Sennosides/Docusate Sodium [Senokot-S Tablet] 2 each PO DAILY #60 tablet [Rx] Trolamine Salicylate/Aloe Vera [Aspercreme 10%] 1 g TOP Q1H PRN #1 tube [Rx] atorvaSTATin [Lipitor] 40 mg PO DAILY #30 tablet 10/20/18 [Rx] traMADol [Ultram] 50 mg PO Q8H PRN #30 tablet 10/20/18 [Rx] Referrals: [facility] [place] [Outside] Teresa Bonds MD [Primary Care Provider] - 10/31/18 3:00 pm (already scheduled; Bryan has appt at 3:30 the same day) - Discharge Summary/Plan Comment DC Time >30 min.: Yes - General Info Subjective Update: Mrs. Mccain reports doing quite well and feels ready to go home. Plans to receive home physical therapy and once completed, proceed with cardiac rehab. Tolerating medications well. R knee pain controlled. Has follow-up appointments scheduled with cardiology and orthopedic surgery. - Patient Data Vitals - Most Recent: Last Vital Signs Temp 37.2 C 10/20/18 07:00 Pulse 81 10/20/18 08:54 Resp 16 10/20/18 07:00 BP 135/67 10/20/18 08:55 Pulse Ox 94 L 10/20/18 07:00 Weight - Most Recent: 71.781 kg I&O - Last 24 hours: Intake & Output 10/19/18 10/20/18 10/20/18 22:59 06:59 14:59 Intake Total 540 50 Balance 540 50 Med Orders - Current: Current Medications Acetaminophen (Tylenol Extra Strength) 1,000 mg PO Q12H FRANCES Last Admin: 10/20/18 09:01 Dose: Not Given Artificial Tears (Refresh Tears 0.5%) 0 ml EYEBOTH QID PRN PRN Reason: Dry Eyes Last Admin: 10/11/18 22:46 Dose: 1 drop Aspirin (Halfprin) 81 mg PO DAILY [facility] Last Admin: 10/20/18 08:55 Dose: 81 mg Atorvastatin Calcium (Lipitor) 40 mg PO DAILY [facility] Last Admin: 10/20/18 08:55 Dose: 40 mg Bisacodyl (Dulcolax) 10 mg RECTAL BID PRN PRN Reason: Constipation Cholecalciferol (Vitamin D3) 2,000 units PO DAILY [facility] Last Admin: 10/20/18 08:54 Dose: 2,000 units Clopidogrel Bisulfate (Plavix) 75 mg PO DAILY [facility] Last Admin: 10/20/18 08:54 Dose: 75 mg Ferrous Sulfate (Ferrous Sulfate) 325 mg PO Q2D [facility] Last Admin: 10/20/18 08:58 Dose: 325 mg Levothyroxine Sodium (Synthroid) 200 mcg PO ACBREAKFAST [facility] Last Admin: 10/20/18 06:40 Dose: 200 mcg Lisinopril (Prinivil) 5 mg PO DAILY [facility] Last Admin: 10/20/18 08:55 Dose: 5 mg Melatonin (Melatonin) 3 mg PO BEDTIME PRN PRN Reason: Insomnia Last Admin: 10/14/18 22:43 Dose: 3 mg Metoprolol Tartrate (Lopressor) 25 mg PO BID [facility] Last Admin: 10/20/18 08:54 Dose: 25 mg Multivitamins/Minerals (Ocuvite) 1 each PO BID [facility] Last Admin: 10/20/18 08:55 Dose: 1 each Oxycodone HCl (Oxycodone) 5 mg PO Q6H PRN PRN Reason: Pain Polyethylene Glycol (Miralax) 17 gm PO BEDTIME PRN PRN Reason: Constipation Primidone (Mysoline) 250 mg PO DAILY [facility] Last Admin: 10/20/18 09:01 Dose: 250 mg Primidone (Mysoline) 500 mg PO BEDTIME [facility] Last Admin: 10/19/18 21:01 Dose: 500 mg Senna/Docusate Sodium (Senna Plus) 2 tab PO DAILY [facility] Last Admin: 10/20/18 08:54 Dose: 2 tab Sertraline HCl (Zoloft) 100 mg PO DAILY [facility] Last Admin: 10/20/18 08:54 Dose: 100 mg Tramadol HCl (Ultram) 50 mg PO Q8H [facility] Last Admin: 10/20/18 06:40 Dose: 50 mg Trolamine Salicylate (Aspercreme 10%) 0 gm TOP Q1H PRN PRN Reason: Pain Discontinued Medications Acetaminophen (Tylenol Extra Strength) 1,000 mg PO Q6HR PRN PRN Reason: Pain Last Admin: 10/11/18 22:40 Dose: 1,000 mg Hydrocodone Bitart/Acetaminophen (Nicholson 325-10 Mg) 1 tab PO Q4HR PRN PRN Reason: Pain Last Admin: 10/15/18 05:02 Dose: 1 tab Cefdinir (Omnicef) 300 mg PO BID [facility] Last Admin: 10/13/18 09:06 Dose: 300 mg Cranberry (Azo Cranberry) 1 each PO DAILY [facility] Last Admin: 10/12/18 08:07 Dose: Not Given Diclofenac Sodium (Voltaren 1% Gel) 0 gm TOP QID PRN PRN Reason: Pain Last Admin: 10/14/18 22:47 Dose: 1 applic Ferrous Sulfate (Ferrous Sulfate) 325 mg PO DAILY [facility] Last Admin: 10/12/18 08:08 Dose: 325 mg Levothyroxine Sodium (Levothyroxine) 25 mcg PO ACBREAKFAST [facility] Last Admin: 10/12/18 07:44 Dose: 25 mcg Levothyroxine Sodium (Synthroid) 200 mcg PO ACBREAKFAST [facility] Last Admin: 10/14/18 11:07 Dose: Not Given Magnesium Hydroxide (Milk Of Magnesia) 30 ml PO BID PRN PRN Reason: Constipation Last Admin: 10/11/18 22:44 Dose: 30 ml Metformin HCl (Glucophage Xr) 500 mg PO BEDTIME [facility] Last Admin: 10/12/18 20:21 Dose: Not Given Primidone (Mysoline) 500 mg PO BEDTIME [facility] Last Admin: 10/12/18 07:10 Dose: Not Given Tramadol HCl (Ultram) 50 mg PO Q6H PRN PRN Reason: Pain Last Admin: 10/14/18 22:55 Dose: 50 mg - Exam Physical Findings Comments:: GENERAL: Well-appearing elderly white female sitting in bedside chair in no acute distress. HEENT: Normocephalic, atraumatic. Conjunctiva clear. Nares patent without discharge. Mucous membranes moist, posterior pharynx unremarkable. NECK: Supple, no masses. CV: Regular rate and rhythm, no murmurs, rubs, or gallops. 2+ radial pulses. PULMONARY: Normal effort, clear to auscultation bilaterally, no wheezes, rales, or rhonchi. ABDOMEN: Positive bowel sounds, soft, nontender, nondistended. EXTREMITIES: No edema, cyanosis, or clubbing. MUSCULOSKELETAL: Moves all extremities well. NEUROLOGICAL: Facial and voice tremor.No obvious deficits. DERMATOLOGIC: R anterior knee wound clean/dry/intact with SteriStrips in place. No rashes or suspicious lesions in exposed areas. PSYCHIATRIC: Alert, interactive, appropriate affect.
== END 2018-10-20 13:40 | disposition home or self-care (01) | DRG 559 ==
LOC: UNDOADMIN 10-11 16:42 → KA.MS 10-11 16:42
PROVIDERS: ADMIT Orthopaedic Surgery; ATTEND Family Medicine
DX: Z47.1 Aftercare following joint replacement surgery (principal); I21.4 Non-ST elevation (NSTEMI) myocardial infarction; I25.5 Ischemic cardiomyopathy; I70.0 Atherosclerosis of aorta; I27.20 Pulmonary hypertension, unspecified; E11.9 Type 2 diabetes mellitus without complications; E03.9 Hypothyroidism, unspecified; Z66 Do not resuscitate; E55.9 Vitamin D deficiency, unspecified; D69.6 Thrombocytopenia, unspecified; F32.9 Major depressive disorder, single episode, unspecified; H35.30 Unspecified macular degeneration; G40.909 Epilepsy, unspecified, not intractable, without status epilepticus; H53.10 Unspecified subjective visual disturbances; Z96.651 Presence of right artificial knee joint; H54.7 Unspecified visual loss; K21.9 Gastro-esophageal reflux disease without esophagitis; E78.00 Pure hypercholesterolemia, unspecified; R25.1 Tremor, unspecified; Z88.8 Allergy status to other drugs, medicaments and biological substances; Z88.2 Allergy status to sulfonamides; Z79.82 Long term (current) use of aspirin
CPT/HCPCS: 36415; 80048; 85025; 87070; 87205; 97110-GP; 97162-GP; A9270-GY

== ENCOUNTER 2018-11-06 18:20 | Inpatient (IN) | payer MEDICARE, OTHER ==
--- NOTE | 2018-11-06 18:56 | EDM.PDOC ---
ED HPI GENERAL MEDICAL PROBLEM - General Chief Complaint: General Stated Complaint: decreased level of consciousness Time Seen by Provider: 11/06/18 18:48 Source of Information: Reports: Patient, EMS, EMS Notes Reviewed, Jail Records - History of Present Illness INITIAL COMMENTS - FREE TEXT/NARRATIVE: Patient is a 78-year-old female who presents to the emergency Department this evening via EMS from [facility] for complaint of altered mental status. Per nursing staff, approximally 3 hours ago patient appeared mildly lethargic and this seemed to progress. Decision was made to contact EMS for transfer to ER. Currently patient is DNR. Patient just left [facility] swing bed on 10/20/2018. Patient underwent right knee replacement on October 03, and also had a non-STEMI cardiac event on 10/04 which resulted in stent placement at that time. Currently patient is lucid and conversing, denies any pain, and vital signs are stable. Discussed patient condition in length with her brother and states that he sees her frequently and has felt that over the past week the of symptoms of lethargy and confusion have been progressing. Onset: Today Onset Date: 11/06/18 Duration: Hour(s): Severity: Mild Worsens with: Reports: None Associated Symptoms: Reports: Confusion. Denies: Diaphoresis, Fever/Chills, Headaches, Nausea/Vomiting, Shortness of Breath - Related Data Allergies Allergy/AdvReac Type Severity Reaction Status Date / Time amantadine Allergy Other Verified 11/06/18 18:55 levetiracetam [From Keppra] Allergy Other Verified 11/06/18 18:55 nitrofurantoin Allergy Burning on Verified 11/06/18 18:55 [From Macrobid] Urination [id number] Reductase Allergy Cannot Verified 11/06/18 18:55 Inhibitor Remember sulfasalazine Allergy Burning on Verified 11/06/18 18:55 Urination Home Meds: Home Meds B-Complex with Vitamin C [Super B Complex-Vitamin C] 1 each PO DAILY 06/03/18 [ History] Cholecalciferol (Vitamin D3) [Vitamin D3] 2,000 unit PO DAILY 06/03/18 [History] Levothyroxine 225 mcg PO ACBRK 06/03/18 [History] Primidone 250 mg PO DAILY 06/03/18 [History] Sertraline [Zoloft] 100 mg PO DAILY 06/03/18 [History] Lutein/Min/Vit C/Vit E Acetate [Ocuvite Lutein] 1 tab PO BID 10/11/18 [History] Primidone 500 mg PO BEDTIME 10/11/18 [History] Propylene Glycol/PEG 400/Pf [Systane Ultra 0.4-0.3% Eye Drp] 1 each OP Q2H PRN 10/11/18 [History] Acetaminophen [Tylenol Extra Strength] 1,000 mg PO TID tablet 10/20/18 [Rx] Aspirin [Halfprin] 81 mg PO DAILY 30 Days tab.ec 10/20/18 [Rx] Clopidogrel [Plavix] 75 mg PO DAILY #30 tablet 10/20/18 [Rx] Ferrous Sulfate 325 mg PO DAILY #30 tablet 10/20/18 [Rx] Lisinopril 5 mg PO DAILY #30 tablet 10/20/18 [Rx] Metoprolol Tartrate 25 mg PO BID #60 tablet 10/20/18 [Rx] Sennosides/Docusate Sodium [Senokot-S Tablet] 2 each PO DAILY #60 tablet [Rx] atorvaSTATin [Lipitor] 40 mg PO DAILY #30 tablet 10/20/18 [Rx] traMADol [Ultram] 50 mg PO Q8H PRN #30 tablet 10/20/18 [Rx] Cranberry 400 mg PO BEDTIME 11/06/18 [History] Past Medical History HEENT History: Reports: Impaired Vision Cardiovascular History: Reports: High Cholesterol, DC Gastrointestinal History: Reports: GERD CUT OUT MARKER History: Reports: Musculoskeletal History: Reports: Fracture Neurological History: Reports: Seizure Endocrine/Metabolic History: Reports: Diabetes, Type II - Past Surgical History Cardiovascular Surgical History: Reports: Other (See Below) Other Cardiovascular Surgeries/Procedures: September 2018 GI Surgical History: Reports: Other (See Below) Other GI Surgeries/Procedures: esophageal wrap Endocrine Surgical History: Reports: None Neurological Surgical History: Reports: None Musculoskeletal Surgical History: Reports: Knee Replacement, Other (See Below) Other Musculoskeletal Surgeries/Procedures:: R knee Social & Family History - Family History Family Medical History: Noncontributory Cardiac: Reports: CAD Neurological: Reports: Parkinson's Oncologic: Reports: Prostate - Caffeine Use Caffeine Use: Reports: Energy Drinks, Tea, Other Other Caffeine Use: 1/2 can of Mountain Dew a day ED ROS GENERAL - Review of Systems Review Of Systems: ROS reveals no pertinent complaints other than HPI. Constitutional: Reports: No Symptoms HEENT: Reports: No Symptoms Respiratory: Reports: No Symptoms Cardiovascular: Reports: No Symptoms Endocrine: Reports: No Symptoms GI/Abdominal: Reports: No Symptoms : Reports: No Symptoms Musculoskeletal: Reports: No Symptoms Skin: Reports: No Symptoms Psychiatric: Reports: No Symptoms Hematologic/Lymphatic: Reports: No Symptoms ED EXAM, GENERAL - Physical Exam Exam: See Below Exam Limited By: No Limitations General Appearance: WD/WN, No Apparent Distress, Lethargic Eye Exam: Bilateral Eye: Normal Inspection Ears: Normal External Exam, Normal Canal, Normal TMs Nose: Normal Inspection, Normal Mucosa, No Blood Throat/Mouth: Normal Inspection, Normal Oropharynx, No Airway Compromise Head: Atraumatic, Normocephalic Neck: Normal Inspection Respiratory/Chest: No Respiratory Distress, Lungs Clear, Normal Breath Sounds, No Accessory Muscle Use, Chest Non-Tender Cardiovascular: Normal Peripheral Pulses, Regular Rate, Rhythm, No Murmur, No Rub GI/Abdominal: Normal Bowel Sounds, Soft, Non-Tender, No Distention, No Abnormal Bruit, No Mass Back Exam: Normal Inspection. No: CVA Tenderness (L), CVA Tenderness (R) Extremities: No Pedal Edema, Normal Capillary Refill, Other (Right knee midline scar, well approximated, no erythema or discharge, distal ecchymosis of anterior tib-fib without circumferential edema, status post knee replacement). No: Joint Swelling, Increased Warmth, Redness Neurological: Oriented, Normal Cognition, Slow to Respond Psychiatric: Flat Affect Skin Exam: Warm, Dry, Intact, Normal Color, No Rash EKG INTERPRETATION EKG Date: 11/06/18 Time: 18:25 Rhythm: NSR Rate (Beats/Min): 86 [place]: Normal P-Wave: Present QRS: Normal Comparison: NA - No Prior EKG EKG Interpretation Comments: Flipped T-wave anterior lateral Course - Vital Signs Last Recorded V/S: Last Vital Signs Temp 98.2 F 11/06/18 18:32 Pulse 78 11/06/18 19:05 Resp 17 11/06/18 19:05 BP 157/61 H 11/06/18 19:05 Pulse Ox 98 11/06/18 19:05 - Orders/Labs/Meds Orders: Active Orders 24 hr Category Date Time Status EKG Documentation Completion [RC] ASDIRECTED Care 11/06/18 18:49 Active Peripheral IV Care [RC] . DIRECTED Care 11/06/18 18:49 Active Chest w Cont [CT] Stat Exams 11/06/18 19:42 Taken CULTURE URINE [RM] Stat Lab 11/06/18 20:04 Ordered Sodium Chloride 0.9% [Saline Flush] Med 11/06/18 18:49 Active 10 ml FLUSH Q8HR PRN Peripheral IV Insertion Adult [OM.PC] Routine Oth 11/06/18 18:49 Ordered Medication Orders Sodium Chloride (Saline Flush) 10 ml FLUSH Q8HR PRN PRN Reason: keep vein open Last Admin: 11/06/18 20:00 Dose: 10 ml Admin: 11/06/18 19:07 Dose: 10 ml Labs: Laboratory Tests 11/06/18 11/06/18 11/06/18 Range/Units 19:00 19:00 19:00 WBC 6.21 (5.00-10.00) 10^3/uL RBC 3.94 (3.80-5.50) 10^6/uL Hgb 13.0 D (12.0-16.0) g/dL Hct 37.9 (37.0-47.0) % MCV 96.2 H (82.0-92.0) fL MCH 33.0 H (27.0-31.0) pg MCHC 34.3 (32.0-36.0) g/dL RDW 16.0 H (11.5-14.5) % Plt Count 196 (150-400) 10^3/uL MPV 9.7 (7.4-10.4) fL Immature Gran % (Auto) 0.5 (0.0-5.0) % Neut % (Auto) 64.5 (50.0-70.0) % Lymph % (Auto) 25.0 (20.0-40.0) % [place] % (Auto) 9.5 H (2.0-8.0) % Eos % (Auto) 0.0 L (1.0-3.0) % Baso % (Auto) 0.5 (0.0-1.0) % Immature Gran # (Auto) 0.03 (0.00-0.50) 10^3/uL Neut # (Auto) 4.01 (2.50-7.00) 10^3/uL Lymph # (Auto) 1.55 (1.00-4.00) 10^3/uL [place] # (Auto) 0.59 (0.10-0.80) 10^3/uL Eos # (Auto) 0.00 L (0.10-0.30) 10^3/uL Baso # (Auto) 0.03 (0.00-0.10) 10^3/uL PT 11.6 H (8.9-11.4) SEC INR 1.1 (0.9-1.1) APTT 35.9 H (23.1-31.9) SEC D-Dimer, Quantitative 3170 H (<400) ng/mL Sodium 142 (136-145) mmol/L Potassium 5.2 D (3.3-5.3) mmol/L Chloride 105 (98-115) mmol/L Carbon Dioxide 14.3 L D (21.0-32.0) mmol/L Anion Gap 27.9 H (5-15) mmol/L BUN 23 (6-25) mg/dL Creatinine 0.76 (0.51-1.17) mg/dL Est Cr Clr Drug Dosing 54.01 mL/min Estimated GFR (MDRD) > 60 mL/min Glucose 145 H (75 - 99) mg/dL Calcium 9.4 (8.7-10.3) mg/dL Total Bilirubin 0.3 (0.2-1.0) mg/dL AST 54 H (15-37) U/L ALT 53 (12-78) U/L Alkaline Phosphatase 161 H (46-116) IU/L Troponin I 0.06 (0.00-0.070) ng/mL Total Protein 7.7 (6.4-8.2) g/dL Albumin 3.38 (3.00-4.80) g/dL Specimen Type Urine Color (YELLOW) Urine Appearance (CLEAR) Urine pH (5.0-9.0) Ur Specific [place] (1.005-1.030) Urine Protein (NEGATIVE) mg/dL Urine Glucose (UA) (NEGATIVE) mg/dL Urine Ketones (NEGATIVE) mg/dL Urine Occult Blood (NEGATIVE) Urine Nitrite (NEGATIVE) Urine Bilirubin (NEGATIVE) Urine Urobilinogen (0.2-1.0) E.U./dL Ur Leukocyte Esterase (NEGATIVE) Urine RBC (0-5) /HPF Urine WBC (0-5) /HPF Ur Epithelial Cells /LPF Urine Bacteria (NONE TO FEW) /HPF 11/06/18 Range/Units 19:20 WBC (5.00-10.00) 10^3/uL RBC (3.80-5.50) 10^6/uL Hgb (12.0-16.0) g/dL Hct (37.0-47.0) % MCV (82.0-92.0) fL MCH (27.0-31.0) pg MCHC (32.0-36.0) g/dL RDW (11.5-14.5) % Plt Count (150-400) 10^3/uL MPV (7.4-10.4) fL Immature Gran % (Auto) (0.0-5.0) % Neut % (Auto) (50.0-70.0) % Lymph % (Auto) (20.0-40.0) % [place] % (Auto) (2.0-8.0) % Eos % (Auto) (1.0-3.0) % Baso % (Auto) (0.0-1.0) % Immature Gran # (Auto) (0.00-0.50) 10^3/uL Neut # (Auto) (2.50-7.00) 10^3/uL Lymph # (Auto) (1.00-4.00) 10^3/uL [place] # (Auto) (0.10-0.80) 10^3/uL Eos # (Auto) (0.10-0.30) 10^3/uL Baso # (Auto) (0.00-0.10) 10^3/uL PT (8.9-11.4) SEC INR (0.9-1.1) APTT (23.1-31.9) SEC D-Dimer, Quantitative (<400) ng/mL Sodium (136-145) mmol/L Potassium (3.3-5.3) mmol/L Chloride (98-115) mmol/L Carbon Dioxide (21.0-32.0) mmol/L Anion Gap (5-15) mmol/L BUN (6-25) mg/dL Creatinine (0.51-1.17) mg/dL Est Cr Clr Drug Dosing mL/min Estimated GFR (MDRD) mL/min Glucose (75 - 99) mg/dL Calcium (8.7-10.3) mg/dL Total Bilirubin (0.2-1.0) mg/dL AST (15-37) U/L ALT (12-78) U/L Alkaline Phosphatase (46-116) IU/L Troponin I (0.00-0.070) ng/mL Total Protein (6.4-8.2) g/dL Albumin (3.00-4.80) g/dL Specimen Type [place] Urine Color Yellow (YELLOW) Urine Appearance Cloudy H (CLEAR) Urine pH 5.5 (5.0-9.0) Ur Specific [place] 1.020 (1.005-1.030) Urine Protein 30 H (NEGATIVE) mg/dL Urine Glucose (UA) Negative (NEGATIVE) mg/dL Urine Ketones Negative (NEGATIVE) mg/dL Urine Occult Blood Trace-intact H (NEGATIVE) Urine Nitrite Positive H (NEGATIVE) Urine Bilirubin Negative (NEGATIVE) Urine Urobilinogen 0.2 (0.2-1.0) E.U./dL Ur Leukocyte Esterase Small H (NEGATIVE) Urine RBC 0-5 (0-5) /HPF Urine WBC >100 H (0-5) /HPF Ur Epithelial Cells Few /LPF Urine Bacteria Many H (NONE TO FEW) /HPF Meds: Medications Generic Name Dose Route Start Last Admin Trade Name Frebhavna PRN Reason Stop Dose Admin Sodium Chloride 10 ml 11/06/18 18:49 11/06/18 20:00 Saline Flush FLUSH 10 ml Q8HR PRN Administration keep vein open Discontinued Medications Generic Name Dose Route Start Last Admin Trade Name Freq PRN Reason Stop Dose Admin Ceftriaxone Sodium 1 gm 11/06/18 19:44 11/06/18 19:59 Rocephin IVPUSH 11/06/18 19:45 1 gm ONETIME ONE Administration Sodium Chloride 100 mls @ 4 mls/sec 11/06/18 20:07 11/06/18 20:58 Normal Saline IV 11/06/18 20:08 4 mls/sec ASDIRECTED ONE Administration Iopamidol 75 ml 11/06/18 20:07 11/06/18 20:58 [id number] (76%) IVPUSH 11/06/18 20:08 75 ml ONETIME ONE Administration - Radiology Interpretation Free Text/Narrative:: Chest x-ray shows no acute cardiopulmonary process. CT chest with IV contrast rules out pulmonary embolus - Re-Assessments/Exams Free Text/Narrative Re-Assessment/Exam: 11/06/18 21:23 Patient afebrile, vital signs stable, discussed case with Mary Kay elmore, nurse practitioner at [facility]. Patient will be admitted for observation and followed. 1 g IV Rocephin given in ER. Departure - Departure Time of Disposition: 21:24 Disposition: Refer to Observation Condition: Fair Clinical Impression: UTI, Urinary tract infectious disease, Confusion with non-focal neuro exam - Discharge Information Forms: ED Department Discharge - My Orders Last 24 Hours: My Active Orders 11/06/18 18:49 EKG Documentation Completion [RC] ASDIRECTED Peripheral IV Care [RC] . DIRECTED Sodium Chloride 0.9% [Saline Flush] 10 ml FLUSH Q8HR PRN Peripheral IV Insertion Adult [OM.PC] Routine 11/06/18 19:42 Chest w Cont [CT] Stat 11/06/18 20:04 CULTURE URINE [RM] Stat - Assessment/Plan Last 24 Hours: My Active Orders 11/06/18 18:49 EKG Documentation Completion [RC] ASDIRECTED Peripheral IV Care [RC] . DIRECTED Sodium Chloride 0.9% [Saline Flush] 10 ml FLUSH Q8HR PRN Peripheral IV Insertion Adult [OM.PC] Routine 11/06/18 19:42 Chest w Cont [CT] Stat 11/06/18 20:04 CULTURE URINE [RM] Stat Assessment:: Urinary tract infection Plan: Admitted for observation
[2018-11-06] MEDS: Sodium Chloride 0.9% 10 ML Syringe FLUSH PRN ×2 (19:07→20:00)
--- NOTE | 2018-11-06 19:21 | CR ---
[id number] RAD/RAD Chest PA or AP 1V EXAM: RAD Chest PA or AP 1V INDICATION: AMS COMPARISON: CT from October 05, 2018. DISCUSSION: Cardiomediastinal silhouette is unchanged in size and contour compared to examination from October 05, 2018. No infiltrate, effusion, pneumothorax, or edema. IMPRESSION: No acute findings in the chest. Hussein Ochoa MD 11/06/18 [id number] Thank you for allowing us to participate in the care of your patient.
[2018-11-06 19:40] LABS: ANION GAP 27.9 mmol/L (5-15); CHLORIDE,CL 105 mmol/L (98-115); SODIUM,NA 142 mmol/L (136-145)
[2018-11-06] MEDS ORDERED: cefTRIAXone 1 GM Vial IVPUSH ONE (19:44)
[2018-11-06] MEDS ORDERED: Iopamidol 755 Mg/ML 75 ML Bottle IVPUSH ONE (20:07)
[2018-11-06] MEDS ORDERED: Sodium Chloride 0.9% 100 ML IV ONE (20:07)
--- NOTE | 2018-11-07 02:07 | PCM.HP ---
H&P History of Present Illness - General Date of Service: 11/07/18 (Supervising physician, Dr Alanna Chambers was notified within 15 min of admission ) Admit Problem/Dx: Admission Diagnosis/Problem Admission Diagnosis/Problem Urinary tract infection Change in mental status Source of Information: RN Notes Reviewed, Other (ER provider and ER notes. Pt sleeping and would not arouse for eval.) History Limitations: Reports: Other (sleeping) - History of Present Illness Initial Comments - Free Text/Narative: Patient is a 78-year-old female who was seen in the emergency Department from [facility] for complaint of altered mental status. Per nursing staff, approximally 3 hours prior to transport to ER, patient appeared progressively more lethargic. Patient has a DNR status. Patient left [facility] bed on 10/20/2018 after a right knee replacement on October 03, with a non-STEMI cardiac event on 10/04 which resulted in stent placement at that time. Apparently pt went to her home after discharge from the hospital but sustained a fall with reported hitting her head. She was admitted to the [facility] November 02. Where they report she was transferring with assistance on admission and today had declined to a point that she was needing to be fed. ER provider reports patient lucid and conversing in ER, denied any pain, and vital signs stable. ER provider discussed patient condition with her brother who stated that he sees her frequently and has felt that over the past week the of symptoms of lethargy and confusion have been progressing. Onset of Symptoms: Reports: Gradual Duration of Symptoms: Reports: Other (long-term nurse reports worsening over the last 3 hours. Pt's brother states she has been slowly declining over the last week.) Associated Symptoms: Reports: Weakness. Denies: Fever/Chills - Related Data Allergies/Adverse Reactions: Allergies Allergy/AdvReac Type Severity Reaction Status Date / Time amantadine Allergy Other Verified 11/06/18 18:55 levetiracetam [From Keppra] Allergy Other Verified 11/06/18 18:55 nitrofurantoin Allergy Burning on Verified 11/06/18 18:55 [From Macrobid] Urination Bqewrwx-Tqz-Pwy Reductase Allergy Cannot Verified 11/06/18 18:55 Inhibitor Remember sulfasalazine Allergy Burning on Verified 11/06/18 18:55 Urination Home Medications: Home Meds RX: B-Complex with Vitamin C [Super B Complex-Vitamin C] 1 each PO DAILY [History] RX: Cholecalciferol (Vitamin D3) [Vitamin D3] 2,000 unit PO DAILY 06/03/18 [ History] RX: Primidone 250 mg PO DAILY 06/03/18 [History] RX: Sertraline [Zoloft] 100 mg PO DAILY 06/03/18 [History] RX: Lutein/Min/Vit C/Vit E Acetate [Ocuvite Lutein] 1 tab PO BID 10/11/18 [ History] RX: Primidone 500 mg PO BEDTIME 10/11/18 [History] RX: Propylene Glycol/PEG 400/Pf [Systane Ultra 0.4-0.3% Eye Drp] 1 each OP Q2H PRN 10/11/18 [History] RX: Acetaminophen [Tylenol Extra Strength] 1,000 mg PO TID tablet 10/20/18 [Rx] RX: Aspirin [Halfprin] 81 mg PO DAILY 30 Days tab.ec 10/20/18 [Rx] RX: Clopidogrel [Plavix] 75 mg PO DAILY #30 tablet 10/20/18 [Rx] RX: Lisinopril 5 mg PO DAILY #30 tablet 10/20/18 [Rx] RX: Metoprolol Tartrate 25 mg PO BID #60 tablet 10/20/18 [Rx] RX: traMADol [Ultram] 50 mg PO Q8H PRN #30 tablet 10/20/18 [Rx] Levothyroxine Sodium [Synthroid] 25 mcg PO ACBREAKFAST 11/06/18 [History] Levothyroxine Sodium [Synthroid] 200 mcg PO ACBREAKFAST 11/06/18 [History] RX: Cranberry 400 mg PO BEDTIME 11/06/18 [History] RX: Ferrous Sulfate 325 mg PO DAILY@1200 11/06/18 [History] RX: Sennosides/Docusate Sodium [Senokot-S Tablet] 1 each PO DAILY 11/06/18 [ History] RX: atorvaSTATin [Lipitor] 40 mg PO BEDTIME 11/06/18 [History] Past Medical History HEENT History: Reports: Impaired Vision, Other (See Below) Other HEENT History: dry eyes bilateral Cardiovascular History: Reports: High Cholesterol, [place] Gastrointestinal History: Reports: Chronic Constipation, GERD CHIP PERSON History: Reports: Musculoskeletal History: Reports: Fracture, Osteoarthritis Neurological History: Reports: Head Trauma, Seizure Psychiatric History: Reports: Depression Endocrine/Metabolic History: Reports: Diabetes, Type II, Hypothyroidism Hematologic History: Reports: Anemia, Iron Deficiency, Other (See Below) Other Hematologic History: vitamin d deficiency - Past Surgical History Head Surgeries/Procedures: Reports: None Cardiovascular Surgical History: Reports: Other (See Below) Other Cardiovascular Surgeries/Procedures: September 2018 GI Surgical History: Reports: Other (See Below) Other GI Surgeries/Procedures: esophageal wrap Endocrine Surgical History: Reports: None Neurological Surgical History: Reports: None Musculoskeletal Surgical History: Reports: Knee Replacement, Other (See Below) Other Musculoskeletal Surgeries/Procedures:: R knee 10/03/18 Social & Family History - Family History Family Medical History: Noncontributory Cardiac: Reports: CAD Neurological: Reports: Parkinson's Oncologic: Reports: Prostate - Caffeine Use Caffeine Use: Reports: Energy Drinks, Tea, Other Other Caffeine Use: 1/2 can of Mountain Dew a day - Recreational Drug Use Recreational Drug Use: No H&P Review of Systems - Review of Systems: Review Of Systems: Unable To Obtain (Pt denies any pain and will provide no further ROS.) Exam - Exam Exam: See Below - Vital Signs Vital Signs: Last Vital Signs Temp 97.0 F 11/06/18 22:05 Pulse 88 11/06/18 22:05 Resp 16 11/06/18 22:05 BP 131/59 L 11/06/18 22:05 Pulse Ox 96 11/06/18 22:05 Weight: 148 lb 3 oz - Exam General: Other (sleeping) Neck: Supple Lungs: Clear to Auscultation, Normal Respiratory Effort Cardiovascular: Regular Rate, Regular Rhythm, Normal S1, Normal S2 GI/Abdominal Exam: Soft, Non-Tender Extremities: Normal Inspection, No Pedal Edema Neuro Extensive - Mental Status: Opens Eyes to Commands, Other (does not want to cooperate with exam at 12 midnight) Psychiatric: Other (drowsy/sleepy) - Patient Data Lab Results Last 24 hrs: Laboratory Results - last 24 hr 11/06/18 11/06/18 11/06/18 Range/Units 19:00 19:00 19:00 WBC 6.21 (5.00-10.00) 10^3/uL RBC 3.94 (3.80-5.50) 10^6/uL Hgb 13.0 D (12.0-16.0) g/dL Hct 37.9 (37.0-47.0) % MCV 96.2 H (82.0-92.0) fL MCH 33.0 H (27.0-31.0) pg MCHC 34.3 (32.0-36.0) g/dL RDW 16.0 H (11.5-14.5) % Plt Count 196 (150-400) 10^3/uL MPV 9.7 (7.4-10.4) fL Immature Gran % (Auto) 0.5 (0.0-5.0) % Neut % (Auto) 64.5 (50.0-70.0) % Lymph % (Auto) 25.0 (20.0-40.0) % Lassen % (Auto) 9.5 H (2.0-8.0) % Eos % (Auto) 0.0 L (1.0-3.0) % Baso % (Auto) 0.5 (0.0-1.0) % Immature Gran # (Auto) 0.03 (0.00-0.50) 10^3/uL Neut # (Auto) 4.01 (2.50-7.00) 10^3/uL Lymph # (Auto) 1.55 (1.00-4.00) 10^3/uL Lassen # (Auto) 0.59 (0.10-0.80) 10^3/uL Eos # (Auto) 0.00 L (0.10-0.30) 10^3/uL Baso # (Auto) 0.03 (0.00-0.10) 10^3/uL PT 11.6 H (8.9-11.4) SEC INR 1.1 (0.9-1.1) APTT 35.9 H (23.1-31.9) SEC D-Dimer, Quantitative 3170 H (<400) ng/mL Sodium 142 (136-145) mmol/L Potassium 5.2 D (3.3-5.3) mmol/L Chloride 105 (98-115) mmol/L Carbon Dioxide 14.3 L D (21.0-32.0) mmol/L Anion Gap 27.9 H (5-15) mmol/L BUN 23 (6-25) mg/dL Creatinine 0.76 (0.51-1.17) mg/dL Est Cr Clr Drug Dosing 54.01 mL/min Estimated GFR (MDRD) > 60 mL/min Glucose 145 H (75 - 99) mg/dL Calcium 9.4 (8.7-10.3) mg/dL Total Bilirubin 0.3 (0.2-1.0) mg/dL AST 54 H (15-37) U/L ALT 53 (12-78) U/L Alkaline Phosphatase 161 H (46-116) IU/L Troponin I 0.06 (0.00-0.070) ng/mL Total Protein 7.7 (6.4-8.2) g/dL Albumin 3.38 (3.00-4.80) g/dL Specimen Type Urine Color (YELLOW) Urine Appearance (CLEAR) Urine pH (5.0-9.0) Ur Specific Burton (1.005-1.030) Urine Protein (NEGATIVE) mg/dL Urine Glucose (UA) (NEGATIVE) mg/dL Urine Ketones (NEGATIVE) mg/dL Urine Occult Blood (NEGATIVE) Urine Nitrite (NEGATIVE) Urine Bilirubin (NEGATIVE) Urine Urobilinogen (0.2-1.0) E.U./dL Ur Leukocyte Esterase (NEGATIVE) Urine RBC (0-5) /HPF Urine WBC (0-5) /HPF Ur Epithelial Cells /LPF Urine Bacteria (NONE TO FEW) /HPF 11/06/18 Range/Units 19:20 WBC (5.00-10.00) 10^3/uL RBC (3.80-5.50) 10^6/uL Hgb (12.0-16.0) g/dL Hct (37.0-47.0) % MCV (82.0-92.0) fL MCH (27.0-31.0) pg MCHC (32.0-36.0) g/dL RDW (11.5-14.5) % Plt Count (150-400) 10^3/uL MPV (7.4-10.4) fL Immature Gran % (Auto) (0.0-5.0) % Neut % (Auto) (50.0-70.0) % Lymph % (Auto) (20.0-40.0) % Lassen % (Auto) (2.0-8.0) % Eos % (Auto) (1.0-3.0) % Baso % (Auto) (0.0-1.0) % Immature Gran # (Auto) (0.00-0.50) 10^3/uL Neut # (Auto) (2.50-7.00) 10^3/uL Lymph # (Auto) (1.00-4.00) 10^3/uL Lassen # (Auto) (0.10-0.80) 10^3/uL Eos # (Auto) (0.10-0.30) 10^3/uL Baso # (Auto) (0.00-0.10) 10^3/uL PT (8.9-11.4) SEC INR (0.9-1.1) APTT (23.1-31.9) SEC D-Dimer, Quantitative (<400) ng/mL Sodium (136-145) mmol/L Potassium (3.3-5.3) mmol/L Chloride (98-115) mmol/L Carbon Dioxide (21.0-32.0) mmol/L Anion Gap (5-15) mmol/L BUN (6-25) mg/dL Creatinine (0.51-1.17) mg/dL Est Cr Clr Drug Dosing mL/min Estimated GFR (MDRD) mL/min Glucose (75 - 99) mg/dL Calcium (8.7-10.3) mg/dL Total Bilirubin (0.2-1.0) mg/dL AST (15-37) U/L ALT (12-78) U/L Alkaline Phosphatase (46-116) IU/L Troponin I (0.00-0.070) ng/mL Total Protein (6.4-8.2) g/dL Albumin (3.00-4.80) g/dL Specimen Type Urinqcath Urine Color Yellow (YELLOW) Urine Appearance Cloudy H (CLEAR) Urine pH 5.5 (5.0-9.0) Ur Specific Burton 1.020 (1.005-1.030) Urine Protein 30 H (NEGATIVE) mg/dL Urine Glucose (UA) Negative (NEGATIVE) mg/dL Urine Ketones Negative (NEGATIVE) mg/dL Urine Occult Blood Trace-intact H (NEGATIVE) Urine Nitrite Positive H (NEGATIVE) Urine Bilirubin Negative (NEGATIVE) Urine Urobilinogen 0.2 (0.2-1.0) E.U./dL Ur Leukocyte Esterase Small H (NEGATIVE) Urine RBC 0-5 (0-5) /HPF Urine WBC >100 H (0-5) /HPF Ur Epithelial Cells Few /LPF Urine Bacteria Many H (NONE TO FEW) /HPF Result Diagrams: 11/06/18 19:00 11/06/18 19:00 - Problem List (1) UTI, Urinary tract infectious disease SNOMED Code(s): 84751891 ICD Code: N39.0 - URINARY TRACT INFECTION, SITE NOT SPECIFIED Status: Acute Current Visit: Yes (2) Confusion with non-focal neuro exam SNOMED Code(s): 91991022, 604332701 ICD Code: R41.0 - DISORIENTATION, UNSPECIFIED Status: Acute Current Visit : Yes Problem List Initiated/Reviewed/Updated: Yes Orders Last 24hrs: Active Orders 24 hr Category Date Time Status Patient Status [ADT] Routine ADT 11/06/18 21:25 Ordered Oxygen Therapy [RC] .PRN Care 11/06/18 21:25 Active VTE/DVT Education [RC] PER UNIT ROUTINE Care 11/06/18 21:25 Active Vital Signs [RC] 0700,1100,1500,1900,2300,0300 Care 11/06/18 21:25 Active Chest w Cont [CT] Stat Exams 11/06/18 19:42 Taken Head wo Cont [CT] Routine Exams 11/07/18 00:14 Taken CULTURE URINE [RM] Stat Lab 11/06/18 19:20 Received ESR [SEDIMENTATION RATE MANUAL] [HEME] Routine Lab 11/07/18 05:00 Ordered Sodium Chloride 0.9% [Saline Flush] Med 11/06/18 18:49 Active 10 ml FLUSH Q8HR PRN cefTRIAXone [Rocephin] Med 11/07/18 19:00 Active 1 gm IVPUSH Q24H Peripheral IV Insertion Adult [OM.PC] Routine Oth 11/06/18 18:49 Ordered Resuscitation Status Routine Resus Stat 11/06/18 21:25 Ordered Medication Orders Ceftriaxone Sodium (Rocephin) 1 gm IVPUSH Q24H FRANCES Sodium Chloride (Saline Flush) 10 ml FLUSH Q8HR PRN PRN Reason: keep vein open Last Admin: 11/06/18 20:00 Dose: 10 ml Admin: 11/06/18 19:07 Dose: 10 ml Assessment/Plan Comment:: 1. Altered Mental Status: Per nursing staff, approximally 3 hours prior to transport to ER, patient appeared progressively more lethargic. They report a history of fall with hitting her head prior to admission to the [place]. DDimer elevated at 3170. CT of chest was negative. CT of the head tonight is normal. WBC, Hgb WNL. Renal functions WNL. LFT mildly elevated (she is on tylenol for arthritis). Will check sed rate in the morning. 2. UTI: UA showing UTI. Will get urine culture. She received Rocephin 1 Gram IV in ER. Will continue rocephin 1 gm q 24 hrs. 3. Post surgical blood loss anemia: Pt has been on iron. Hgb 13.0. Will hold iron. Chronic conditions: CAD with stent, ischemic cardiomyopathy, Heart failure with reduced EF - continue plavix (no bleed noted on CT of head), atorvastatin, lisinopril, metoprolol tartrate. Hypothyroidism: last TSH was low at 0.20 on 09/18/18. Levothyroxine dose was to be decreased at that time. Will decrease her levothyroxine from 225 mcg daily to 200 mcg daily. Essential Tremor: continue primadone. Depression: continue sertraline Osteoarthritis: Continue scheduled tylenol and prn tramadol. Disposition: Patient has a DNR status. Is resident [facility] Plan of care reviewed with Dr Mondragon and he is in agreement.
[2018-11-07] MEDS ORDERED: traMADol 50 MG Tab PO PRN (02:20)
[2018-11-07] MEDS ORDERED: Carboxymethylcellulose Sodium 0.5% Ophth Soln 15 ML Bottle EYEBOTH PRN (02:20)
[2018-11-07] MEDS ORDERED: Levothyroxine 25 MCG Tab PO SCH (07:30)
--- NOTE | 2018-11-07 08:22 | CT ---
[id number] CT/CTA Chest EXAM: CTA Chest CLINICAL DATA: UNRESPONSIVE, DDIMER 3000 COMPARISON: None. FINDINGS: LUNGS: Clear. No pneumothorax or effusion. No endobronchial lesions. HEART AND GREAT VESSELS: Extensive coronary artery atherosclerosis. Mild cardiomegaly. No pericardial effusion. Thoracic aorta atherosclerosis. No aneurysm. Negative for pulmonary embolus. MEDIASTINUM AND LYMPHATICS: No mediastinal or hilar lymphadenopathy. UPPER ABDOMINAL ORGANS: Small sliding-type hiatus hernia. Other structures are unremarkable. BONES: Scattered changes of spondylosis in the spine. No fracture or osseous lesion. IMPRESSION: Negative for pulmonary embolus or other acute findings in the chest. Hussein Ochoa MD 11/07/18 0821 Thank you for allowing us to participate in the care of your patient.
--- NOTE | 2018-11-07 08:26 | CT ---
[id number] CT/CT Head WO IV EXAM: CT Head WO IV CLINICAL DATA: DECREASED LOC COMPARISON STUDY: None FINDINGS: No intracranial hemorrhage, extra-axial fluid collection, mass, or acute ischemia. Generalized parenchymal atrophy with scattered areas of nonspecific white matter disease, commonly seen as sequela of chronic microvascular ischemia. Soft tissues are unremarkable. Paranasal sinuses and mastoid air cells are clear. IMPRESSION: No acute intracranial findings. Jamal Saleem DO 11/07/18 0826 Thank you for allowing us to participate in the care of your patient.
[2018-11-07] MEDS ORDERED: Primidone 250 MG Tab PO SCH ×2 (09:00→21:00)
[2018-11-07] MEDS: Clopidogrel 75 MG Tab PO SCH (10:48)
[2018-11-07] MEDS: Vitamin B Complex Tab PO SCH (10:48)
[2018-11-07] MEDS: Cholecalciferol (Vitamin D3) 1,000 Unit Tab PO SCH (10:48)
[2018-11-07] MEDS: Aspirin 81 MG Tab.EC PO SCH (10:48)
[2018-11-07] MEDS: Sertraline 50 MG Tab PO SCH (10:50)
[2018-11-07] MEDS: Acetaminophen 500 MG Tab PO SCH ×3 (10:51→20:45)
[2018-11-07] MEDS: Lutein/Minerals/Vitamins A, C & E Tab PO SCH ×2 (10:51→20:46)
[2018-11-07] MEDS: Levothyroxine 25 MCG Tab PO SCH (10:54)
[2018-11-07] MEDS: Levothyroxine 100 MCG Tab PO SCH (10:54)
[2018-11-07] MEDS: Lisinopril 5 MG Tab PO SCH (11:01)
[2018-11-07] MEDS: Metoprolol Tartrate 25 MG Tab PO SCH ×2 (11:01→20:46)
[2018-11-07] MEDS: Primidone 50 MG Tab PO SCH ×2 (12:12→20:44)
[2018-11-07] MEDS: cefTRIAXone 1 GM Vial IVPUSH SCH (18:38)
[2018-11-07] MEDS: atorvaSTATin 40 MG Tab PO SCH (20:46)
[2018-11-07] MEDS: Cranberry Ext/C/L. Sporogenes Tab PO SCH (20:47)
[2018-11-08] MEDS: Levothyroxine 25 MCG Tab PO SCH (07:46)
[2018-11-08] MEDS: Levothyroxine 100 MCG Tab PO SCH (07:47)
[2018-11-08] MEDS: Sertraline 50 MG Tab PO SCH (08:50)
[2018-11-08] MEDS: Lisinopril 5 MG Tab PO SCH (09:46)
[2018-11-08] MEDS: Clopidogrel 75 MG Tab PO SCH (09:46)
[2018-11-08] MEDS: Metoprolol Tartrate 25 MG Tab PO SCH ×2 (09:47→21:08)
[2018-11-08] MEDS: Primidone 50 MG Tab PO SCH ×2 (09:50→21:15)
[2018-11-08] MEDS: Acetaminophen 500 MG Tab PO SCH ×5 (09:50→21:43)
[2018-11-08] MEDS: Aspirin 81 MG Tab.EC PO SCH (09:50)
--- NOTE | 2018-11-08 11:28 | PCM.PN ---
- General Info Date of Service: 11/08/18 Functional Status: Reports: Pain Controlled, Tolerating Diet. Denies: New Symptoms - Review of Systems General: Reports: Weakness HEENT: Denies: Dysphasia Pulmonary: Reports: No Symptoms Cardiovascular: Reports: No Symptoms Gastrointestinal: Reports: Decreased Appetite Genitourinary: Reports: No Symptoms Skin: Reports: Bruising Neurological: Reports: Confusion, Pre-Existing Deficit, Tremors, Difficulty Walking, Weakness, Gait Disturbance Psychiatric: Reports: Confusion - Patient Data Vitals - Most Recent: Last Vital Signs Temp 97.7 F 11/08/18 06:39 Pulse 66 11/08/18 09:47 Resp 16 11/08/18 06:39 BP 137/51 L 11/08/18 09:47 Pulse Ox 98 11/08/18 11:10 Weight - Most Recent: 148 lb 3 oz I&O - Last 24 Hours: Intake & Output 11/07/18 11/08/18 11/08/18 22:59 06:59 14:59 Intake Total 560 0 Balance 560 0 Sarwat Results Last 24 Hours: Microbiology 11/06/18 19:20 Urine Culture - Final Urine, Quick Cath (In-Out) Med Orders - Current: Current Medications Acetaminophen (Tylenol Extra Strength) 1,000 mg PO TID [facility] Last Admin: 11/07/18 20:45 Dose: 1,000 mg Artificial Tears (Refresh Tears 0.5%) 0 ml EYEBOTH Q2H PRN PRN Reason: Dry Eyes Aspirin (Halfprin) 81 mg PO DAILY [facility] Last Admin: 11/07/18 10:48 Dose: 81 mg Atorvastatin Calcium (Lipitor) 40 mg PO BEDTIME [facility] Last Admin: 11/07/18 20:46 Dose: 40 mg Ceftriaxone Sodium (Rocephin) 1 gm IVPUSH Q24H [facility] Last Admin: 11/07/18 18:38 Dose: 1 gm Cholecalciferol (Vitamin D3) 2,000 units PO DAILY [facility] Last Admin: 11/07/18 10:48 Dose: 2,000 units Clopidogrel Bisulfate (Plavix) 75 mg PO DAILY [facility] Last Admin: 11/08/18 09:46 Dose: 75 mg Cranberry (Azo Cranberry) 1 each PO BEDTIME [facility] Last Admin: 11/07/18 20:47 Dose: Not Given Levothyroxine Sodium (Synthroid) 200 mcg PO ACBREAKFAST [facility] Last Admin: 11/08/18 07:47 Dose: 200 mcg Levothyroxine Sodium (Levothyroxine) 25 mcg PO ACBREAKFAST [facility] Last Admin: 11/08/18 07:46 Dose: 25 mcg Lisinopril (Prinivil) 5 mg PO DAILY [facility] Last Admin: 11/08/18 09:46 Dose: 5 mg Metoprolol Tartrate (Lopressor) 25 mg PO BID [facility] Last Admin: 11/08/18 09:47 Dose: 25 mg Multivitamins/Minerals (Ocuvite) 1 each PO BID [facility] Last Admin: 11/07/18 20:46 Dose: 1 each Primidone (Mysoline) 250 mg PO DAILY [facility] Last Admin: 11/07/18 12:12 Dose: 250 mg Primidone (Mysoline) 500 mg PO BEDTIME [facility] Last Admin: 11/07/18 20:44 Dose: 500 mg Senna/Docusate Sodium (Senna Plus) 1 tab PO DAILY [facility] Last Admin: 11/07/18 10:50 Dose: 1 tab Sertraline HCl (Zoloft) 100 mg PO DAILY [facility] Last Admin: 11/07/18 10:50 Dose: 100 mg Sodium Chloride (Saline Flush) 10 ml FLUSH Q8HR PRN PRN Reason: keep vein open Last Admin: 11/06/18 20:00 Dose: 10 ml Tramadol HCl (Ultram) 50 mg PO Q8H PRN PRN Reason: Pain (severe 7-10) Vitamin B Complex (Vitamin B Complex) 1 each PO DAILY [facility] Last Admin: 11/07/18 10:48 Dose: 1 each Discontinued Medications Ceftriaxone Sodium (Rocephin) 1 gm IVPUSH ONETIME ONE Stop: 11/06/18 19:45 Last Admin: 11/06/18 19:59 Dose: 1 gm Sodium Chloride (Normal Saline) 100 mls @ 4 mls/sec IV ASDIRECTED ONE Stop: 11/06/18 20:08 Last Admin: 11/06/18 20:58 Dose: 4 mls/sec Iopamidol (Isovue-370 (76%)) 75 ml IVPUSH ONETIME ONE Stop: 11/06/18 20:08 Last Admin: 11/06/18 20:58 Dose: 75 ml Levothyroxine Sodium (Levothyroxine) 25 mcg PO ACBREAKFAST [facility] Primidone (Mysoline) 250 mg PO DAILY [facility] Last Admin: 11/07/18 13:59 Dose: Not Given Primidone (Mysoline) 500 mg PO BEDTIME FRANCES - Exam Quality Assessment: No: Supplemental Oxygen - Problem List Review Problem List Initiated/Reviewed/Updated: Yes - My Orders Last 24 Hours: My Active Orders 11/07/18 Lunch Soft Diet [DIET] - Plan Plan:: history 78-year-old female who was seen in the emergency Department from [facility] for complaint of altered mental status. Per nursing staff, approximally 3 hours prior to transport to ER, patient appeared progressively more lethargic. Patient left [facility] swing bed on 10/20/2018 after a right knee replacement on October 03, with a non-STEMI cardiac event on 10/04 which resulted in stent placement at that time. Apparently pt went to her home after discharge from the hospital but sustained a fall with reported hitting her head. She was admitted to the [facility] November 02. Where they report she was transferring with assistance on admission and today had declined to a point that she was needing to be fed. ER provider reports patient lucid and conversing in ER, denied any pain, and vital signs stable. ER provider discussed patient condition with her brother who stated that he sees her frequently and has felt that over the past week the of symptoms of lethargy and confusion have been progressing. Patient has a DNR status. Per nursing staff, approximally 3 hours prior to transport to ER, patient appeared progressively more lethargic. They report a history of fall with hitting her head prior to admission to the [place]. CT of chest-negative. CT of the head--normal DDimer elevated at 3170. Primary hospital problems --Urinary tract infection, culture gram-negative rods --Altered Mental Status, Improving, --recent hemadynamic NE Chronic conditions: --CAD with stent, ischemic cardiomyopathy, Heart failure with reduced EF - continue plavix (no bleed noted on CT of head), atorvastatin, lisinopril, metoprolol --Hypothyroidism: last TSH was low at 0.20 on 09/18/18. Levothyroxine dose was to be decreased at that time. Decreased levothyroxine from 225 mcg daily to 200 mcg daily. --Essential Tremor: continue primadone. --Depression: continue sertraline --Osteoarthritis: Continue scheduled tylenol however hold tramadol. Disposition/overall plan Full discussion with patient's son along with social director on roundsl this morning. Patient's son concerned about returning to local [facility] due to care issues. He will speak to welfare administrator today regarding these issues in the meantime will keep her inpatient today, to chair, cont tx of UTI however anticipate discharge back to SNF she will require aggressive PT/OT.
[2018-11-08] MEDS ORDERED: Sodium Chloride 0.9% 250 ML IV SCH (14:15)
[2018-11-08] MEDS: Lutein/Minerals/Vitamins A, C & E Tab PO SCH ×3 (14:29→21:28)
[2018-11-08] MEDS: Vitamin B Complex Tab PO SCH ×2 (14:29→18:38)
[2018-11-08] MEDS: Cholecalciferol (Vitamin D3) 1,000 Unit Tab PO SCH (14:29)
[2018-11-08] MEDS: Sodium Chloride 0.9% 1,000 ML IV SCH (16:17)
[2018-11-08] MEDS: cefTRIAXone 1 GM Vial IVPUSH SCH (18:35)
[2018-11-08] MEDS: atorvaSTATin 40 MG Tab PO SCH (21:26)
[2018-11-08] MEDS: Cranberry Ext/C/L. Sporogenes Tab PO SCH (21:28)
[2018-11-09] MEDS: Levothyroxine 100 MCG Tab PO SCH (06:49)
[2018-11-09] MEDS: Metoprolol Tartrate 25 MG Tab PO SCH (08:22)
[2018-11-09 08:34] LABS: ANION GAP 34.7 mmol/L (5-15)
[2018-11-09] MEDS: Sodium Chloride 0.9% 1,000 ML IV SCH ×3 (08:37→17:03)
[2018-11-09] MEDS: Levothyroxine 25 MCG Tab PO SCH (09:54)
[2018-11-09] MEDS ORDERED: Metoprolol Tartrate 5 MG/5 ML SDV IVPUSH ONE (10:46)
--- NOTE | 2018-11-09 11:02 | PCM.PN ---
- General Info Date of Service: 11/09/18 Subjective Update: unable to obtain review of systems as patient difficult to arouse and obtunded this morning on rounds Functional Status: Reports: Urinating (incontinent). Denies: Tolerating Diet, Ambulating - Review of Systems General: Reports: Weakness - Patient Data Vitals - Most Recent: Last Vital Signs Temp 98.9 F 11/09/18 07:00 Pulse 101 H 11/09/18 08:22 Resp 20 11/09/18 07:00 BP 187/82 H 11/09/18 08:22 Pulse Ox 99 11/09/18 07:30 Weight - Most Recent: 148 lb 3 oz I&O - Last 24 Hours: Intake & Output 11/08/18 11/09/18 11/09/18 22:59 06:59 14:59 Intake Total 250 1045 Balance 250 1045 Lab Results Last 24 Hours: Laboratory Results - last 24 hr 11/09/18 11/09/18 Range/Units 07:25 07:25 WBC 6.50 (5.00-10.00) 10^3/uL RBC 3.35 L (3.80-5.50) 10^6/uL Hgb 11.1 L D (12.0-16.0) g/dL Hct 33.3 L (37.0-47.0) % MCV 99.4 H D (82.0-92.0) fL MCH 33.1 H (27.0-31.0) pg MCHC 33.3 (32.0-36.0) g/dL RDW 16.2 H (11.5-14.5) % Plt Count 175 (150-400) 10^3/uL MPV 10.4 (7.4-10.4) fL Immature Gran % (Auto) 0.5 (0.0-5.0) % Neut % (Auto) 73.0 H (50.0-70.0) % Lymph % (Auto) 19.7 L (20.0-40.0) % [place] % (Auto) 6.3 (2.0-8.0) % Eos % (Auto) 0.0 L (1.0-3.0) % Baso % (Auto) 0.5 (0.0-1.0) % Immature Gran # (Auto) 0.03 (0.00-0.50) 10^3/uL Neut # (Auto) 4.75 (2.50-7.00) 10^3/uL Lymph # (Auto) 1.28 (1.00-4.00) 10^3/uL [place] # (Auto) 0.41 (0.10-0.80) 10^3/uL Eos # (Auto) 0.00 L (0.10-0.30) 10^3/uL Baso # (Auto) 0.03 (0.00-0.10) 10^3/uL Sodium 145 (136-145) mmol/L Potassium 5.5 H (3.3-5.3) mmol/L Chloride 108 (98-115) mmol/L Carbon Dioxide 7.8 L (21.0-32.0) mmol/L Anion Gap 34.7 H (5-15) mmol/L BUN 40 H (6-25) mg/dL Creatinine 2.11 H D (0.51-1.17) mg/dL Est Cr Clr Drug Dosing 19.45 mL/min Estimated GFR (MDRD) 23 mL/min Glucose 153 H (75 - 99) mg/dL Calcium 8.8 (8.7-10.3) mg/dL Total Bilirubin 0.2 (0.2-1.0) mg/dL AST 33 (15-37) U/L ALT 37 (12-78) U/L Alkaline Phosphatase 131 H (46-116) IU/L Total Protein 6.6 (6.4-8.2) g/dL Albumin 2.92 L (3.00-4.80) g/dL [place] Results Last 24 Hours: Microbiology 11/06/18 19:20 Bacterial ID and Susceptibility - Preliminary Urine - Catheterized Escherichia Coli Med Orders - Current: Current Medications Acetaminophen (Tylenol Extra Strength) 1,000 mg PO TID [facility] Last Admin: 11/08/18 21:43 Dose: 1,000 mg Artificial Tears (Refresh Tears 0.5%) 0 ml EYEBOTH Q2H PRN PRN Reason: Dry Eyes Aspirin (Halfprin) 81 mg PO DAILY [facility] Last Admin: 11/08/18 09:50 Dose: 81 mg Atorvastatin Calcium (Lipitor) 40 mg PO BEDTIME [facility] Last Admin: 11/08/18 21:26 Dose: 40 mg Ceftriaxone Sodium (Rocephin) 1 gm IVPUSH Q24H [facility] Last Admin: 11/08/18 18:35 Dose: 1 gm Cholecalciferol (Vitamin D3) 2,000 units PO DAILY [facility] Last Admin: 11/08/18 14:29 Dose: 2,000 units Clopidogrel Bisulfate (Plavix) 75 mg PO DAILY [facility] Last Admin: 11/08/18 09:46 Dose: 75 mg Cranberry (Azo Cranberry) 1 each PO BEDTIME [facility] Last Admin: 11/08/18 21:28 Dose: Not Given Sodium Chloride (Normal Saline) 1,000 mls @ 60 mls/hr IV ASDIRECTED [facility] Last Admin: 11/09/18 08:38 Dose: 60 mls/hr Levothyroxine Sodium (Synthroid) 200 mcg PO ACBREAKFAST [facility] Last Admin: 11/09/18 06:49 Dose: 200 mcg Levothyroxine Sodium (Levothyroxine) 25 mcg PO ACBREAKFAST [facility] Last Admin: 11/09/18 09:54 Dose: Not Given Lisinopril (Prinivil) 5 mg PO DAILY [facility] Last Admin: 11/08/18 09:46 Dose: 5 mg Metoprolol Tartrate (Lopressor) 25 mg PO BID [facility] Last Admin: 11/09/18 08:22 Dose: 25 mg Multivitamins/Minerals (Ocuvite) 1 each PO BID [facility] Last Admin: 11/08/18 21:28 Dose: Not Given Primidone (Mysoline) 250 mg PO DAILY [facility] Last Admin: 11/08/18 09:50 Dose: 250 mg Primidone (Mysoline) 500 mg PO BEDTIME [facility] Last Admin: 11/08/18 21:15 Dose: 500 mg Senna/Docusate Sodium (Senna Plus) 1 tab PO DAILY [facility] Last Admin: 11/08/18 09:50 Dose: 1 tab Sertraline HCl (Zoloft) 100 mg PO DAILY [facility] Last Admin: 11/08/18 08:50 Dose: 100 mg Sodium Chloride (Saline Flush) 10 ml FLUSH Q8HR PRN PRN Reason: keep vein open Last Admin: 11/06/18 20:00 Dose: 10 ml Tramadol HCl (Ultram) 50 mg PO Q8H PRN PRN Reason: Pain (severe 7-10) Last Admin: 05/29/19 20:14 Dose: 50 mg Vitamin B Complex (Vitamin B Complex) 1 each PO DAILY [facility] Last Admin: 11/08/18 18:38 Dose: Not Given Discontinued Medications Ceftriaxone Sodium (Rocephin) 1 gm IVPUSH ONETIME ONE Stop: 11/06/18 19:45 Last Admin: 11/06/18 19:59 Dose: 1 gm Sodium Chloride (Normal Saline) 100 mls @ 4 mls/sec IV ASDIRECTED ONE Stop: 11/06/18 20:08 Last Admin: 11/06/18 20:58 Dose: 4 mls/sec Sodium Chloride (Normal Saline) 250 mls @ 200 mls/hr IV ASDIRECTED [facility] Stop: 11/08/18 15:15 Last Admin: 11/08/18 14:30 Dose: 200 mls/hr Iopamidol (Isovue-370 (76%)) 75 ml IVPUSH ONETIME ONE Stop: 11/06/18 20:08 Last Admin: 11/06/18 20:58 Dose: 75 ml Levothyroxine Sodium (Levothyroxine) 25 mcg PO ACBREAKFAST [facility] Primidone (Mysoline) 250 mg PO DAILY [facility] Last Admin: 11/07/18 13:59 Dose: Not Given Primidone (Mysoline) 500 mg PO BEDTIME [facility] - Exam Quality Assessment: No: Supplemental Oxygen General: No Acute Distress. No: Alert, Oriented HEENT: Pupils Equal Neck: Supple Lungs: Clear to Auscultation, Normal Respiratory Effort Cardiovascular: Tachycardia GI/Abdominal Exam: Normal Bowel Sounds, Soft (Female) Exam: Deferred Extremities: No Pedal Edema Peripheral Pulses: 2+: Radial (L), Radial (R) Skin: Warm, Dry, Intact Neurological: No: Normal Speech, Normal Tone Psy/Mental Status: Other (opens eyes slowly to verbal commands) - Problem List Review Problem List Initiated/Reviewed/Updated: Yes - My Orders Last 24 Hours: My Active Orders 11/08/18 15:30 Sodium Chloride 0.9% [Normal Saline] 1,000 ml IV ASDIRECTED - Plan Plan:: history 78-year-old female who was seen in the emergency Department from [facility] for complaint of altered mental status. Per nursing staff, approximally 3 hours prior to transport to ER, patient appeared progressively more lethargic. Patient left [facility] swing bed on 10/20/2018 after a right knee replacement on October 03, with a non-STEMI cardiac event on 10/04 which resulted in stent placement at that time. Apparently pt went to her home after discharge from the hospital but sustained a fall with reported hitting her head. She was admitted to the [facility] November 02. Where they report she was transferring with assistance on admission and today had declined to a point that she was needing to be fed. ER provider reports patient lucid and conversing in ER, denied any pain, and vital signs stable. ER provider discussed patient condition with her brother who stated that he sees her frequently and has felt that over the past week the of symptoms of lethargy and confusion have been progressing. Patient has a DNR status. Per nursing staff, approximally 3 hours prior to transport to ER, patient appeared progressively more lethargic. They report a history of fall with hitting her head prior to admission to the [place]. CT of chest-negative. CT of the head--normal DDimer elevated at 3170. Primary hospital problems --encephalopathy with significant altered mental status --Urinary tract infection, culture gram-negative rods --acute kidney injury --dehydration --Anemia --Hyperkalemia --protein malnutritio --recent GA Chronic conditions: --CAD with stent, ischemic cardiomyopathy, Heart failure with reduced EF - continue plavix (no bleed noted on CT of head), Holding PO meds at this time 2/ 2 AMS and risk of aspiration. --Hypothyroidism: last TSH was low at 0.20 on 09/18/18. Levothyroxine dose was to be decreased at that time. Decreased levothyroxine from 225 mcg daily to 200 mcg daily--holding --Essential Tremor: holding home primadone. --Depression: holding home sertraline --Osteoarthritis: Holding meds tylenol and tramadol. Disposition/overall plan --continue inpatient stay --Continue Rocephin --hold PO meds, --metoprolol tartrate IV 1 --bladder scan --Increase IV fluids --BMP 1700 today --Assess troponin level --Urine/serum drug screen --repeat head CT
[2018-11-09 12:04] LABS: BARBITURATE SCREEN,URINE POSITIVE (NEGATIVE); BENZODIAZEPINES SCREEN,URINE NEGATIVE (NEGATIVE)
[2018-11-09 12:05] LABS: TCA SCREEN,URINE NEGATIVE (NEGATIVE); THC SCREEN,URINE 50 NG/ML NEGATIVE (NEGATIVE)
[2018-11-09] MEDS ORDERED: Sodium Chloride 0.9% 1,000 ML IV SCH (12:30)
[2018-11-09] MEDS ORDERED: Metoprolol Tartrate 5 MG/5 ML SDV ONE (12:51)
[2018-11-09] MEDS: Aspirin 81 MG Tab.EC PO SCH (14:50)
[2018-11-09] MEDS: Primidone 50 MG Tab PO SCH (14:50)
[2018-11-09] MEDS: Lutein/Minerals/Vitamins A, C & E Tab PO SCH (14:50)
[2018-11-09] MEDS: Clopidogrel 75 MG Tab PO SCH (14:51)
[2018-11-09] MEDS: Lisinopril 5 MG Tab PO SCH (14:52)
[2018-11-09] MEDS: Acetaminophen 500 MG Tab PO SCH (14:53)
[2018-11-09] MEDS: Cholecalciferol (Vitamin D3) 1,000 Unit Tab PO SCH (14:54)
[2018-11-09] MEDS: Sertraline 50 MG Tab PO SCH (14:54)
[2018-11-09] MEDS: Vitamin B Complex Tab PO SCH (14:54)
--- NOTE | 2018-11-09 15:19 | CT ---
[id number] CT/CT Head WO IV EXAM: CT Head WO IV CLINICAL DATA: UNRESPONSIVE. COMPARISON STUDY: November 07, 2018. FINDINGS: No intracranial hemorrhage, extra-axial fluid collection, mass, or acute ischemia. Generalized parenchymal atrophy with scattered areas of nonspecific white matter disease, commonly seen as sequela of chronic microvascular ischemia. Soft tissues are unremarkable. Paranasal sinuses and mastoid air cells are clear. IMPRESSION: No acute intracranial findings. Jamal Saleem DO 11/09/18 1518 Thank you for allowing us to participate in the care of your patient.
[2018-11-09 17:48] LABS: ANION GAP 33.3 mmol/L (5-15)
[2018-11-09] MEDS: cefTRIAXone 1 GM Vial IVPUSH SCH (19:38)
[2018-11-09 19:41] LABS: O2 DELIVERY DEVICE ROOM AIR
[2018-11-09 19:42] LABS: BICARBONATE,ARTERIAL 4.8 mmol/L (22-26); O2 SATURATION ARTERIAL 97 % (95-98); PCO2 ARTERIAL 13 mmHG (35-45); PO2 ARTERIAL 107 mmHG (80-105)
[2018-11-09 19:43] LABS: BASE EXCESS ARTERIAL -24 mmol/L (-2-3)
[2018-11-09] MEDS: Morphine 2 MG/ML Syringe IVPUSH PRN ×2 (21:29→23:29)
[2018-11-09] MEDS: Glycopyrrolate 0.2 MG/ML 5 ML MDV SUBCUT PRN (21:29)
[2018-11-09 21:35] LABS: ANION GAP 33.3 mmol/L (5-15)
[2018-11-10] MEDS: Sodium Chloride 0.9% 1,000 ML IV SCH (01:35)
[2018-11-10] MEDS: Morphine 2 MG/ML Syringe IVPUSH PRN ×11 (02:06→22:53)
--- NOTE | 2018-11-10 09:56 | PCM.PN ---
- General Info Date of Service: 11/10/18 Subjective Update: unable to obtain review of systems as patient unresponsive - Patient Data Vitals - Most Recent: Last Vital Signs Temp 98.2 F 11/10/18 06:40 Pulse 89 11/10/18 06:40 Resp 20 11/10/18 06:40 BP 131/58 L 11/10/18 06:40 Pulse Ox 99 11/10/18 06:40 Weight - Most Recent: 148 lb 3 oz I&O - Last 24 Hours: Intake & Output 11/09/18 11/10/18 11/10/18 22:59 06:59 14:59 Intake Total 1122 848 Output Total 600 450 Balance 522 398 Lab Results Last 24 Hours: Laboratory Results - last 24 hr 11/09/18 11/09/18 11/09/18 Range/Units 07:25 11:30 17:20 WBC (5.00-10.00) 10^3/uL RBC (3.80-5.50) 10^6/uL Hgb (12.0-16.0) g/dL Hct (37.0-47.0) % MCV (82.0-92.0) fL MCH (27.0-31.0) pg MCHC (32.0-36.0) g/dL RDW (11.5-14.5) % Plt Count (150-400) 10^3/uL MPV (7.4-10.4) fL Immature Gran % (Auto) (0.0-5.0) % Neut % (Auto) (50.0-70.0) % Lymph % (Auto) (20.0-40.0) % [place] % (Auto) (2.0-8.0) % Eos % (Auto) (1.0-3.0) % Baso % (Auto) (0.0-1.0) % Immature Gran # (Auto) (0.00-0.50) 10^3/uL Neut # (Auto) (2.50-7.00) 10^3/uL Lymph # (Auto) (1.00-4.00) 10^3/uL [place] # (Auto) (0.10-0.80) 10^3/uL Eos # (Auto) (0.10-0.30) 10^3/uL Baso # (Auto) (0.00-0.10) 10^3/uL ABG pH (7.35-7.45) ABG pCO2 (35-45) mmHG ABG pO2 (80-105) mmHG ABG HCO3 (22-26) mmol/L ABG Total CO2 (23-27) mmol/L ABG O2 Saturation (95-98) % ABG Base Excess (-2-3) mmol/L O2 Delivery Device Sodium 145 (136-145) mmol/L Potassium 5.4 H (3.3-5.3) mmol/L Chloride 109 (98-115) mmol/L Carbon Dioxide 8.1 L (21.0-32.0) mmol/L Anion Gap 33.3 H (5-15) mmol/L BUN 41 H (6-25) mg/dL Creatinine 1.89 H (0.51-1.17) mg/dL Est Cr Clr Drug Dosing 21.72 mL/min Estimated GFR (MDRD) 26 mL/min Glucose 147 H (75 - 99) mg/dL Lactic Acid (0.4-2.0) mmol/L Calcium 9.0 (8.7-10.3) mg/dL Total Bilirubin (0.2-1.0) mg/dL AST (15-37) U/L ALT (12-78) U/L Alkaline Phosphatase (46-116) IU/L Troponin I 0.06 (0.00-0.070) ng/mL C-Reactive Protein (0.0-0.9) mg/dL Total Protein (6.4-8.2) g/dL Albumin (3.00-4.80) g/dL Urine Opiates Screen Negative (NEGATIVE) Ur Oxycodone Screen Negative (NEGATIVE) Urine Methadone Screen Negative (NEGATIVE) Ur Propoxyphene Screen Negative (NEGATIVE) Acetaminophen (10.0-30.0) ug/mL Ur Barbiturates Screen Positive H (NEGATIVE) Ur Tricyclics Screen Negative (NEGATIVE) Ur Phencyclidine Scrn Negative (NEGATIVE) Ur Amphetamine Screen Negative (NEGATIVE) U Methamphetamines Scrn Negative (NEGATIVE) U Benzodiazepines Scrn Negative (NEGATIVE) U Cocaine Metab Screen Negative (NEGATIVE) U Marijuana (THC) Screen Negative (NEGATIVE) 05/30/19 05/30/19 05/30/19 Range/Units 19:20 19:20 19:30 WBC (5.00-10.00) 10^3/uL RBC (3.80-5.50) 10^6/uL Hgb (12.0-16.0) g/dL Hct (37.0-47.0) % MCV (82.0-92.0) fL MCH (27.0-31.0) pg MCHC (32.0-36.0) g/dL RDW (11.5-14.5) % Plt Count (150-400) 10^3/uL MPV (7.4-10.4) fL Immature Gran % (Auto) (0.0-5.0) % Neut % (Auto) (50.0-70.0) % Lymph % (Auto) (20.0-40.0) % [place] % (Auto) (2.0-8.0) % Eos % (Auto) (1.0-3.0) % Baso % (Auto) (0.0-1.0) % Immature Gran # (Auto) (0.00-0.50) 10^3/uL Neut # (Auto) (2.50-7.00) 10^3/uL Lymph # (Auto) (1.00-4.00) 10^3/uL [place] # (Auto) (0.10-0.80) 10^3/uL Eos # (Auto) (0.10-0.30) 10^3/uL Baso # (Auto) (0.00-0.10) 10^3/uL ABG pH 7.17 L* (7.35-7.45) ABG pCO2 13 L* (35-45) mmHG ABG pO2 107 H (80-105) mmHG ABG HCO3 4.8 L (22-26) mmol/L ABG Total CO2 5 L (23-27) mmol/L ABG O2 Saturation 97 (95-98) % ABG Base Excess -24 L (-2-3) mmol/L O2 Delivery Device Room air Sodium 148 H (136-145) mmol/L Potassium 5.5 H (3.3-5.3) mmol/L Chloride 113 (98-115) mmol/L Carbon Dioxide 7.2 L (21.0-32.0) mmol/L Anion Gap 33.3 H (5-15) mmol/L BUN 41 H (6-25) mg/dL Creatinine 1.79 H (0.51-1.17) mg/dL Est Cr Clr Drug Dosing 22.93 mL/min Estimated GFR (MDRD) 27 mL/min Glucose 168 H (75 - 99) mg/dL Lactic Acid 1.2 (0.4-2.0) mmol/L Calcium 8.9 (8.7-10.3) mg/dL Total Bilirubin 0.2 (0.2-1.0) mg/dL AST 40 H (15-37) U/L ALT 37 (12-78) U/L Alkaline Phosphatase 140 H (46-116) IU/L Troponin I (0.00-0.070) ng/mL C-Reactive Protein (0.0-0.9) mg/dL Total Protein 6.8 (6.4-8.2) g/dL Albumin 3.06 (3.00-4.80) g/dL Urine Opiates Screen (NEGATIVE) Ur Oxycodone Screen (NEGATIVE) Urine Methadone Screen (NEGATIVE) Ur Propoxyphene Screen (NEGATIVE) Acetaminophen 0.0 L (10.0-30.0) ug/mL Ur Barbiturates Screen (NEGATIVE) Ur Tricyclics Screen (NEGATIVE) Ur Phencyclidine Scrn (NEGATIVE) Ur Amphetamine Screen (NEGATIVE) U Methamphetamines Scrn (NEGATIVE) U Benzodiazepines Scrn (NEGATIVE) U Cocaine Metab Screen (NEGATIVE) U Marijuana (THC) Screen (NEGATIVE) 11/09/18 11/09/18 Range/Units 19:30 19:30 WBC 7.31 (5.00-10.00) 10^3/uL RBC 3.54 L (3.80-5.50) 10^6/uL Hgb 11.8 L (12.0-16.0) g/dL Hct 34.8 L (37.0-47.0) % MCV 98.3 H (82.0-92.0) fL MCH 33.3 H (27.0-31.0) pg MCHC 33.9 (32.0-36.0) g/dL RDW 16.0 H (11.5-14.5) % Plt Count 155 (150-400) 10^3/uL MPV 9.6 (7.4-10.4) fL Immature Gran % (Auto) 1.0 (0.0-5.0) % Neut % (Auto) 70.2 H (50.0-70.0) % Lymph % (Auto) 22.7 (20.0-40.0) % [place] % (Auto) 5.7 (2.0-8.0) % Eos % (Auto) 0.0 L (1.0-3.0) % Baso % (Auto) 0.4 (0.0-1.0) % Immature Gran # (Auto) 0.07 (0.00-0.50) 10^3/uL Neut # (Auto) 5.13 (2.50-7.00) 10^3/uL Lymph # (Auto) 1.66 (1.00-4.00) 10^3/uL [place] # (Auto) 0.42 (0.10-0.80) 10^3/uL Eos # (Auto) 0.00 L (0.10-0.30) 10^3/uL Baso # (Auto) 0.03 (0.00-0.10) 10^3/uL ABG pH (7.35-7.45) ABG pCO2 (35-45) mmHG ABG pO2 (80-105) mmHG ABG HCO3 (22-26) mmol/L ABG Total CO2 (23-27) mmol/L ABG O2 Saturation (95-98) % ABG Base Excess (-2-3) mmol/L O2 Delivery Device Sodium (136-145) mmol/L Potassium (3.3-5.3) mmol/L Chloride (98-115) mmol/L Carbon Dioxide (21.0-32.0) mmol/L Anion Gap (5-15) mmol/L BUN (6-25) mg/dL Creatinine (0.51-1.17) mg/dL Est Cr Clr Drug Dosing mL/min Estimated GFR (MDRD) mL/min Glucose (75 - 99) mg/dL Lactic Acid (0.4-2.0) mmol/L Calcium (8.7-10.3) mg/dL Total Bilirubin (0.2-1.0) mg/dL AST (15-37) U/L ALT (12-78) U/L Alkaline Phosphatase (46-116) IU/L Troponin I 0.06 (0.00-0.070) ng/mL C-Reactive Protein 2.0 H (0.0-0.9) mg/dL Total Protein (6.4-8.2) g/dL Albumin (3.00-4.80) g/dL Urine Opiates Screen (NEGATIVE) Ur Oxycodone Screen (NEGATIVE) Urine Methadone Screen (NEGATIVE) Ur Propoxyphene Screen (NEGATIVE) Acetaminophen (10.0-30.0) ug/mL Ur Barbiturates Screen (NEGATIVE) Ur Tricyclics Screen (NEGATIVE) Ur Phencyclidine Scrn (NEGATIVE) Ur Amphetamine Screen (NEGATIVE) U Methamphetamines Scrn (NEGATIVE) U Benzodiazepines Scrn (NEGATIVE) U Cocaine Metab Screen (NEGATIVE) U Marijuana (THC) Screen (NEGATIVE) [place] Results Last 24 Hours: Microbiology 11/06/18 19:20 Bacterial ID and Susceptibility - Final Urine - Catheterized Escherichia Coli Med Orders - Current: Current Medications Acetaminophen (Tylenol Extra Strength) 1,000 mg PO TID [facility] Last Admin: 11/09/18 14:53 Dose: Not Given Artificial Tears (Refresh Tears 0.5%) 0 ml EYEBOTH Q2H PRN PRN Reason: Dry Eyes Aspirin (Halfprin) 81 mg PO DAILY [facility] Last Admin: 11/09/18 14:50 Dose: Not Given Atorvastatin Calcium (Lipitor) 40 mg PO BEDTIME [facility] Last Admin: 11/08/18 21:26 Dose: 40 mg Ceftriaxone Sodium (Rocephin) 1 gm IVPUSH Q24H [facility] Last Admin: 11/09/18 19:38 Dose: 1 gm Cholecalciferol (Vitamin D3) 2,000 units PO DAILY [facility] Last Admin: 11/09/18 14:54 Dose: Not Given Clopidogrel Bisulfate (Plavix) 75 mg PO DAILY [facility] Last Admin: 11/09/18 14:51 Dose: Not Given Cranberry (Azo Cranberry) 1 each PO BEDTIME [facility] Last Admin: 11/08/18 21:28 Dose: Not Given Glycopyrrolate (Robinul) 0.2 mg SUBCUT Q2H PRN PRN Reason: secretions Last Admin: 11/09/18 21:29 Dose: 0.2 mg Sodium Chloride (Normal Saline) 1,000 mls @ 125 mls/hr IV ASDIRECTED [facility] Last Admin: 11/10/18 01:35 Dose: 125 mls/hr Levothyroxine Sodium (Synthroid) 200 mcg PO ACBREAKFAST [facility] Last Admin: 11/09/18 06:49 Dose: 200 mcg Levothyroxine Sodium (Levothyroxine) 25 mcg PO ACBREAKFAST [facility] Last Admin: 11/09/18 09:54 Dose: Not Given Lisinopril (Prinivil) 5 mg PO DAILY [facility] Last Admin: 11/09/18 14:52 Dose: Not Given Metoprolol Tartrate (Lopressor) 25 mg PO BID [facility] Last Admin: 11/09/18 08:22 Dose: 25 mg Morphine Sulfate (Morphine) 1 mg IVPUSH Q1H PRN PRN Reason: pain, respiratory distress Last Admin: 11/10/18 08:15 Dose: 1 mg Multivitamins/Minerals (Ocuvite) 1 each PO BID [facility] Last Admin: 11/09/18 14:50 Dose: Not Given Primidone (Mysoline) 250 mg PO DAILY [facility] Last Admin: 11/09/18 14:50 Dose: Not Given Primidone (Mysoline) 500 mg PO BEDTIME [facility] Last Admin: 11/08/18 21:15 Dose: 500 mg Senna/Docusate Sodium (Senna Plus) 1 tab PO DAILY [facility] Last Admin: 11/09/18 14:53 Dose: Not Given Sertraline HCl (Zoloft) 100 mg PO DAILY [facility] Last Admin: 11/09/18 14:54 Dose: Not Given Sodium Chloride (Saline Flush) 10 ml FLUSH Q8HR PRN PRN Reason: keep vein open Last Admin: 11/06/18 20:00 Dose: 10 ml Tramadol HCl (Ultram) 50 mg PO Q8H PRN PRN Reason: Pain (severe 7-10) Last Admin: 11/08/18 20:14 Dose: 50 mg Vitamin B Complex (Vitamin B Complex) 1 each PO DAILY [facility] Last Admin: 11/09/18 14:54 Dose: Not Given Discontinued Medications Ceftriaxone Sodium (Rocephin) 1 gm IVPUSH ONETIME ONE Stop: 11/06/18 19:45 Last Admin: 11/06/18 19:59 Dose: 1 gm Sodium Chloride (Normal Saline) 100 mls @ 4 mls/sec IV ASDIRECTED ONE Stop: 11/06/18 20:08 Last Admin: 11/06/18 20:58 Dose: 4 mls/sec Sodium Chloride (Normal Saline) 1,000 mls @ 60 mls/hr IV ASDIRECTED [facility] Stop: 11/09/18 13:30 Last Admin: 11/09/18 08:38 Dose: 60 mls/hr Sodium Chloride (Normal Saline) 250 mls @ 200 mls/hr IV ASDIRECTED [facility] Stop: 11/08/18 15:15 Last Admin: 11/08/18 14:30 Dose: 200 mls/hr Sodium Chloride (Normal Saline) 1,000 mls @ 300 mls/hr IV ASDIRECTED [facility] Stop: 11/09/18 13:30 Iopamidol (Isovue-370 (76%)) 75 ml IVPUSH ONETIME ONE Stop: 11/06/18 20:08 Last Admin: 11/06/18 20:58 Dose: 75 ml Levothyroxine Sodium (Levothyroxine) 25 mcg PO ACBREAKFAST [facility] Metoprolol Tartrate (Lopressor) 5 mg IVPUSH ONETIME ONE Stop: 11/09/18 10:47 Last Admin: 11/09/18 13:06 Dose: 5 mg Metoprolol Tartrate (Lopressor) Confirm Administered Dose 5 mg .ROUTE .STK-MED ONE Stop: 11/09/18 12:52 Last Admin: 11/09/18 14:54 Dose: 5 mg Primidone (Mysoline) 250 mg PO DAILY [facility] Last Admin: 11/07/18 13:59 Dose: Not Given Primidone (Mysoline) 500 mg PO BEDTIME [facility] - Exam Quality Assessment: Supplemental Oxygen General: No: Alert, Oriented Lungs: No: Normal Respiratory Effort (deep regular respirations), Crackles, Rales Cardiovascular: Regular Rate, Regular Rhythm GI/Abdominal Exam: Normal Bowel Sounds, Soft Extremities: Other (no mottling) Skin: Other (no mottling) Psy/Mental Status: No: Alert - Problem List & Annotations (1) Encounter for palliative care SNOMED Code(s): 184368140 Code(s): Z51.5 - ENCOUNTER FOR PALLIATIVE CARE Status: Acute - Problem List Review Problem List Initiated/Reviewed/Updated: Yes - My Orders Last 24 Hours: My Active Orders 11/09/18 10:42 Bladder Scan [RC] ASDIRECTED 11/09/18 10:55 Patient Status [ADT] Routine 11/09/18 13:30 Sodium Chloride 0.9% [Normal Saline] 1,000 ml IV ASDIRECTED - Plan Plan:: history 78-year-old female who was seen in the emergency Department from [facility] for complaint of altered mental status. Per nursing staff, approximally 3 hours prior to transport to ER, patient appeared progressively more lethargic. Patient left [facility] swing bed on 10/20/2018 after a right knee replacement on October 03, with a non-STEMI cardiac event on 10/04 which resulted in stent placement at that time. Apparently pt went to her home after discharge from the hospital but sustained a fall with reported hitting her head. She was admitted to the [facility] November 02. Where they report she was transferring with assistance on admission and today had declined to a point that she was needing to be fed. ER provider reports patient lucid and conversing in ER, denied any pain, and vital signs stable. ER provider discussed patient condition with her brother who stated that he sees her frequently and has felt that over the past week the of symptoms of lethargy and confusion have been progressing. Patient has a DNR status. Per nursing staff, approximally 3 hours prior to transport to ER, patient appeared progressively more lethargic. They report a history of fall with hitting her head prior to admission to the [place]. CT of chest-negative. CT of the head--normal DDimer elevated at 3170. update. patient has had significant altered mental status and now unresponsive. ABG obtained with significant metabolic acidosis questionable toxic etiology possible salicylate. lactic acid normal. patient is DNR/DNI/comfort cares however ongoing antiotics with IV fluids continues Primary hospital problems --metabolic acidosis, questionable toxic ingestion, salicylate levels pending --metabolic encephalopathy --Urinary tract infection, culture gram-negative rods --acute kidney injury --dehydration --Anemia --Hyperkalemia --protein malnutrition --recent [place] Disposition/overall plan patient in grave condition, expected management. Comfort cares. --Continue with Sanchez catheter for dignity purposes --discontinue IV fluids if family agrees --discontinue Rocephin, IV fluids if family agrees --hold PO meds, --Morphine long discussion with son at bedside. discussion included patient's grave condition/prognosis and the dying process and the dignity of . We discussed discontinuing IV fluids and ABx, He does agree with this however will consult with sister for collaboration.
[2018-11-10] MEDS: Sodium Chloride 0.9% 10 ML Syringe FLUSH PRN ×5 (10:18→18:08)
[2018-11-10] MEDS: Glycopyrrolate 0.2 MG/ML 5 ML MDV SUBCUT PRN (13:55)
[2018-11-11] MEDS: Morphine 2 MG/ML Syringe IVPUSH PRN ×6 (01:19→12:43)
[2018-11-11] MEDS: Glycopyrrolate 0.2 MG/ML 5 ML MDV SUBCUT PRN (09:10)
--- NOTE | 2018-11-11 11:45 | PCM.PN ---
- General Info Date of Service: 11/11/18 - Patient Data Vitals - Most Recent: Last Vital Signs Temp 37.8 C 11/11/18 09:00 Pulse 120 H 11/11/18 09:00 Resp 20 11/11/18 09:00 BP 95/46 L 11/11/18 09:00 Pulse Ox 99 11/11/18 09:00 Weight - Most Recent: 67.217 kg I&O - Last 24 Hours: Intake & Output 11/10/18 11/11/18 11/11/18 22:59 06:59 14:59 Output Total 375 350 Balance -375 -350 Lab Results Last 24 Hours: Laboratory Results - last 24 hr 11/09/18 Range/Units 19:20 Salicylates <2.5 L (15.0-30.0) mg/dL Med Orders - Current: Current Medications Acetaminophen (Tylenol Extra Strength) 1,000 mg PO TID [facility] Last Admin: 11/09/18 14:53 Dose: Not Given Artificial Tears (Refresh Tears 0.5%) 0 ml EYEBOTH Q2H PRN PRN Reason: Dry Eyes Aspirin (Halfprin) 81 mg PO DAILY [facility] Last Admin: 11/09/18 14:50 Dose: Not Given Atorvastatin Calcium (Lipitor) 40 mg PO BEDTIME [facility] Last Admin: 11/08/18 21:26 Dose: 40 mg Cholecalciferol (Vitamin D3) 2,000 units PO DAILY [facility] Last Admin: 11/09/18 14:54 Dose: Not Given Clopidogrel Bisulfate (Plavix) 75 mg PO DAILY [facility] Last Admin: 11/09/18 14:51 Dose: Not Given Cranberry (Azo Cranberry) 1 each PO BEDTIME [facility] Last Admin: 11/08/18 21:28 Dose: Not Given Glycopyrrolate (Robinul) 0.2 mg SUBCUT Q2H PRN PRN Reason: secretions Last Admin: 11/11/18 09:10 Dose: 0.2 mg Levothyroxine Sodium (Synthroid) 200 mcg PO ACBREAKFAST [facility] Last Admin: 11/09/18 06:49 Dose: 200 mcg Levothyroxine Sodium (Levothyroxine) 25 mcg PO ACBREAKFAST [facility] Last Admin: 11/09/18 09:54 Dose: Not Given Lisinopril (Prinivil) 5 mg PO DAILY [facility] Last Admin: 11/09/18 14:52 Dose: Not Given Metoprolol Tartrate (Lopressor) 25 mg PO BID [facility] Last Admin: 11/09/18 08:22 Dose: 25 mg Morphine Sulfate (Morphine) 1 mg IVPUSH Q1H PRN PRN Reason: pain, respiratory distress Last Admin: 11/11/18 10:19 Dose: 1 mg Multivitamins/Minerals (Ocuvite) 1 each PO BID [facility] Last Admin: 11/09/18 14:50 Dose: Not Given Primidone (Mysoline) 250 mg PO DAILY [facility] Last Admin: 11/09/18 14:50 Dose: Not Given Primidone (Mysoline) 500 mg PO BEDTIME [facility] Last Admin: 11/08/18 21:15 Dose: 500 mg Senna/Docusate Sodium (Senna Plus) 1 tab PO DAILY [facility] Last Admin: 11/09/18 14:53 Dose: Not Given Sertraline HCl (Zoloft) 100 mg PO DAILY [facility] Last Admin: 11/09/18 14:54 Dose: Not Given Sodium Chloride (Saline Flush) 10 ml FLUSH Q8HR PRN PRN Reason: keep vein open Last Admin: 11/10/18 18:08 Dose: 10 ml Tramadol HCl (Ultram) 50 mg PO Q8H PRN PRN Reason: Pain (severe 7-10) Last Admin: 11/08/18 20:14 Dose: 50 mg Vitamin B Complex (Vitamin B Complex) 1 each PO DAILY [facility] Last Admin: 11/09/18 14:54 Dose: Not Given Discontinued Medications Ceftriaxone Sodium (Rocephin) 1 gm IVPUSH ONETIME ONE Stop: 11/06/18 19:45 Last Admin: 11/06/18 19:59 Dose: 1 gm Ceftriaxone Sodium (Rocephin) 1 gm IVPUSH Q24H [facility] Last Admin: 11/09/18 19:38 Dose: 1 gm Sodium Chloride (Normal Saline) 100 mls @ 4 mls/sec IV ASDIRECTED ONE Stop: 11/06/18 20:08 Last Admin: 11/06/18 20:58 Dose: 4 mls/sec Sodium Chloride (Normal Saline) 1,000 mls @ 60 mls/hr IV ASDIRECTED [facility] Stop: 11/09/18 13:30 Last Admin: 11/09/18 08:38 Dose: 60 mls/hr Sodium Chloride (Normal Saline) 250 mls @ 200 mls/hr IV ASDIRECTED [facility] Stop: 11/08/18 15:15 Last Admin: 11/08/18 14:30 Dose: 200 mls/hr Sodium Chloride (Normal Saline) 1,000 mls @ 300 mls/hr IV ASDIRECTED [facility] Stop: 11/09/18 13:30 Sodium Chloride (Normal Saline) 1,000 mls @ 125 mls/hr IV ASDIRECTED [facility] Last Admin: 11/10/18 01:35 Dose: 125 mls/hr Iopamidol (Isovue-370 (76%)) 75 ml IVPUSH ONETIME ONE Stop: 11/06/18 20:08 Last Admin: 11/06/18 20:58 Dose: 75 ml Levothyroxine Sodium (Levothyroxine) 25 mcg PO ACBREAKFAST [facility] Metoprolol Tartrate (Lopressor) 5 mg IVPUSH ONETIME ONE Stop: 11/09/18 10:47 Last Admin: 11/09/18 13:06 Dose: 5 mg Metoprolol Tartrate (Lopressor) Confirm Administered Dose 5 mg .ROUTE .STK-MED ONE Stop: 11/09/18 12:52 Last Admin: 11/09/18 14:54 Dose: 5 mg Primidone (Mysoline) 250 mg PO DAILY [facility] Last Admin: 11/07/18 13:59 Dose: Not Given Primidone (Mysoline) 500 mg PO BEDTIME [facility] - My Orders Last 24 Hours: My Active Orders 11/11/18 14:30 Insert Urinary Catheter [OM.PC] Q24H - Plan Plan:: history 78-year-old female who was seen in the emergency Department from [facility] for complaint of altered mental status. Per nursing staff, approximally 3 hours prior to transport to ER, patient appeared progressively more lethargic. Patient left [facility] swing bed on 10/20/2018 after a right knee replacement on October 03, with a non-STEMI cardiac event on 10/04 which resulted in stent placement at that time. Apparently pt went to her home after discharge from the hospital but sustained a fall with reported hitting her head. She was admitted to the [facility] home November 02. Where they report she was transferring with assistance on admission and today had declined to a point that she was needing to be fed. ER provider reports patient lucid and conversing in ER, denied any pain, and vital signs stable. ER provider discussed patient condition with her brother who stated that he sees her frequently and has felt that over the past week the of symptoms of lethargy and confusion have been progressing. Patient has a DNR status. Per nursing staff, approximally 3 hours prior to transport to ER, patient appeared progressively more lethargic. They report a history of fall with hitting her head prior to admission to the [place]. CT of chest-negative. CT of the head--normal DDimer elevated at 3170. update. patient has had significant altered mental status and now unresponsive. ABG obtained with significant metabolic acidosis questionable toxic etiology possible salicylate. lactic acid normal. patient is DNR/DNI/comfort cares however ongoing antiotics with IV fluids continues Primary hospital problems --metabolic acidosis, questionable toxic ingestion, salicylate levels pending --metabolic encephalopathy --Urinary tract infection, culture gram-negative rods --acute kidney injury --dehydration --Anemia --Hyperkalemia --protein malnutrition --recent DE Disposition/overall plan patient in grave condition, expected management. Comfort cares. --Continue with Sanchez catheter for dignity purposes --discontinue IV fluids --discontinue Rocephin --hold PO meds, --Morphine long discussion with son at bedside. discussion included patient's grave condition/prognosis and the dying process and the dignity of . We discussed discontinuing IV fluids and ABx, He does agree with this however will consult with sister for collaboration.
--- NOTE | 2018-11-11 14:23 | PCM.DCSUM1 ---
Discharge Summary - Discharge Data Discharge Date: 11/11/18 Discharge Disposition: 20 Condition: - Discharge Plan Home Medications: Home Meds B-Complex with Vitamin C [Super B Complex-Vitamin C] 1 each PO DAILY 06/03/18 [ History] Cholecalciferol (Vitamin D3) [Vitamin D3] 2,000 unit PO DAILY 06/03/18 [History] Primidone 250 mg PO DAILY 06/03/18 [History] Sertraline [Zoloft] 100 mg PO DAILY 06/03/18 [History] Lutein/Min/Vit C/Vit E Acetate [Ocuvite Lutein] 1 tab PO BID 10/11/18 [History] Primidone 500 mg PO BEDTIME 10/11/18 [History] Propylene Glycol/PEG 400/Pf [Systane Ultra 0.4-0.3% Eye Drp] 1 each OP Q2H PRN 10/11/18 [History] Acetaminophen [Tylenol Extra Strength] 1,000 mg PO TID tablet 10/20/18 [Rx] Aspirin [Halfprin] 81 mg PO DAILY 30 Days tab.ec 10/20/18 [Rx] Clopidogrel [Plavix] 75 mg PO DAILY #30 tablet 10/20/18 [Rx] Lisinopril 5 mg PO DAILY #30 tablet 10/20/18 [Rx] Metoprolol Tartrate 25 mg PO BID #60 tablet 10/20/18 [Rx] traMADol [Ultram] 50 mg PO Q8H PRN #30 tablet 10/20/18 [Rx] Cranberry 400 mg PO BEDTIME 11/06/18 [History] Ferrous Sulfate 325 mg PO DAILY@1200 11/06/18 [History] Levothyroxine Sodium [Synthroid] 25 mcg PO ACBREAKFAST 11/06/18 [History] Levothyroxine Sodium [Synthroid] 200 mcg PO ACBREAKFAST 11/06/18 [History] Sennosides/Docusate Sodium [Senokot-S Tablet] 1 each PO DAILY 11/06/18 [History] atorvaSTATin [Lipitor] 40 mg PO BEDTIME 11/06/18 [History] Forms: ED Department Discharge Referrals: Ayanna Chambers MD [Family Provider] - - Patient Data Vitals - Most Recent: Last Vital Signs Temp 37.8 C 11/11/18 09:00 Pulse 120 H 11/11/18 09:00 Resp 20 11/11/18 09:00 BP 95/46 L 11/11/18 09:00 Pulse Ox 99 11/11/18 09:00 Weight - Most Recent: 67.217 kg I&O - Last 24 hours: Intake & Output 11/10/18 11/11/18 11/11/18 22:59 06:59 14:59 Output Total 375 350 Balance -375 -350 Lab Results - Last 24 hrs: Laboratory Results - last 24 hr 11/09/18 Range/Units 19:20 Salicylates <2.5 L (15.0-30.0) mg/dL Med Orders - Current: Current Medications Artificial Tears (Refresh Tears 0.5%) 0 ml EYEBOTH Q2H PRN PRN Reason: Dry Eyes Glycopyrrolate (Robinul) 0.2 mg SUBCUT Q2H PRN PRN Reason: secretions Last Admin: 11/11/18 09:10 Dose: 0.2 mg Morphine Sulfate (Morphine) 1 mg IVPUSH Q1H PRN PRN Reason: pain, respiratory distress Last Admin: 11/11/18 12:43 Dose: 1 mg Sodium Chloride (Saline Flush) 10 ml FLUSH Q8HR PRN PRN Reason: keep vein open Last Admin: 11/10/18 18:08 Dose: 10 ml Discontinued Medications Acetaminophen (Tylenol Extra Strength) 1,000 mg PO TID [facility] Last Admin: 11/09/18 14:53 Dose: Not Given Aspirin (Halfprin) 81 mg PO DAILY [facility] Last Admin: 11/09/18 14:50 Dose: Not Given Atorvastatin Calcium (Lipitor) 40 mg PO BEDTIME [facility] Last Admin: 11/08/18 21:26 Dose: 40 mg Ceftriaxone Sodium (Rocephin) 1 gm IVPUSH ONETIME ONE Stop: 11/06/18 19:45 Last Admin: 11/06/18 19:59 Dose: 1 gm Ceftriaxone Sodium (Rocephin) 1 gm IVPUSH Q24H [facility] Last Admin: 11/09/18 19:38 Dose: 1 gm Cholecalciferol (Vitamin D3) 2,000 units PO DAILY [facility] Last Admin: 11/09/18 14:54 Dose: Not Given Clopidogrel Bisulfate (Plavix) 75 mg PO DAILY [facility] Last Admin: 11/09/18 14:51 Dose: Not Given Cranberry (Azo Cranberry) 1 each PO BEDTIME [facility] Last Admin: 11/08/18 21:28 Dose: Not Given Sodium Chloride (Normal Saline) 100 mls @ 4 mls/sec IV ASDIRECTED ONE Stop: 11/06/18 20:08 Last Admin: 11/06/18 20:58 Dose: 4 mls/sec Sodium Chloride (Normal Saline) 1,000 mls @ 60 mls/hr IV ASDIRECTED [facility] Stop: 11/09/18 13:30 Last Admin: 11/09/18 08:38 Dose: 60 mls/hr Sodium Chloride (Normal Saline) 250 mls @ 200 mls/hr IV ASDIRECTED [facility] Stop: 11/08/18 15:15 Last Admin: 11/08/18 14:30 Dose: 200 mls/hr Sodium Chloride (Normal Saline) 1,000 mls @ 300 mls/hr IV ASDIRECTED [facility] Stop: 11/09/18 13:30 Sodium Chloride (Normal Saline) 1,000 mls @ 125 mls/hr IV ASDIRECTED [facility] Last Admin: 11/10/18 01:35 Dose: 125 mls/hr Iopamidol (Isovue-370 (76%)) 75 ml IVPUSH ONETIME ONE Stop: 11/06/18 20:08 Last Admin: 11/06/18 20:58 Dose: 75 ml Levothyroxine Sodium (Levothyroxine) 25 mcg PO ACBREAKFAST [facility] Levothyroxine Sodium (Synthroid) 200 mcg PO ACBREAKFAST [facility] Last Admin: 11/09/18 06:49 Dose: 200 mcg Levothyroxine Sodium (Levothyroxine) 25 mcg PO ACBREAKFAST [facility] Last Admin: 11/09/18 09:54 Dose: Not Given Lisinopril (Prinivil) 5 mg PO DAILY [facility] Last Admin: 11/09/18 14:52 Dose: Not Given Metoprolol Tartrate (Lopressor) 25 mg PO BID [facility] Last Admin: 11/09/18 08:22 Dose: 25 mg Metoprolol Tartrate (Lopressor) 5 mg IVPUSH ONETIME ONE Stop: 11/09/18 10:47 Last Admin: 11/09/18 13:06 Dose: 5 mg Metoprolol Tartrate (Lopressor) Confirm Administered Dose 5 mg .ROUTE .STK-MED ONE Stop: 11/09/18 12:52 Last Admin: 11/09/18 14:54 Dose: 5 mg Multivitamins/Minerals (Ocuvite) 1 each PO BID [facility] Last Admin: 11/09/18 14:50 Dose: Not Given Primidone (Mysoline) 250 mg PO DAILY [facility] Last Admin: 11/07/18 13:59 Dose: Not Given Primidone (Mysoline) 500 mg PO BEDTIME [facility] Primidone (Mysoline) 250 mg PO DAILY [facility] Last Admin: 11/09/18 14:50 Dose: Not Given Primidone (Mysoline) 500 mg PO BEDTIME [facility] Last Admin: 11/08/18 21:15 Dose: 500 mg Senna/Docusate Sodium (Senna Plus) 1 tab PO DAILY [facility] Last Admin: 11/09/18 14:53 Dose: Not Given Sertraline HCl (Zoloft) 100 mg PO DAILY [facility] Last Admin: 11/09/18 14:54 Dose: Not Given Tramadol HCl (Ultram) 50 mg PO Q8H PRN PRN Reason: Pain (severe 7-10) Last Admin: 11/08/18 20:14 Dose: 50 mg Vitamin B Complex (Vitamin B Complex) 1 each PO DAILY [facility] Last Admin: 11/09/18 14:54 Dose: Not Given
== END 2018-11-11 16:54 | disposition expired | DRG 682 ==
LOC: KA.ED 18:20 → KA.MS 21:25 → OBSVTOIN 11-09 10:55
PROVIDERS: ADMIT Nurse Practitioner Family; ATTEND Family Medicine
DX: N17.9 Acute kidney failure, unspecified (principal); G93.41 Metabolic encephalopathy; D62 Acute posthemorrhagic anemia; I50.22 Chronic systolic (congestive) heart failure; E87.2 Acidosis; E46 Unspecified protein-calorie malnutrition; Z51.5 Encounter for palliative care; K59.09 Other constipation; H54.7 Unspecified visual loss; R41.82 Altered mental status, unspecified; K21.9 Gastro-esophageal reflux disease without esophagitis; Z96.651 Presence of right artificial knee joint; E78.00 Pure hypercholesterolemia, unspecified; R53.83 Other fatigue; R79.89 Other specified abnormal findings of blood chemistry; E11.9 Type 2 diabetes mellitus without complications; Z88.1 Allergy status to other antibiotic agents; R56.9 Unspecified convulsions; R40.2133 Coma scale, eyes open, to sound, at hospital admission; Z66 Do not resuscitate; E86.0 Dehydration; Z68.24 Body mass index [BMI] 24.0-24.9, adult; E87.5 Hyperkalemia; Z95.5 Presence of coronary angioplasty implant and graft; I25.2 Old myocardial infarction; Z88.8 Allergy status to other drugs, medicaments and biological substances; Z88.2 Allergy status to sulfonamides; Z79.02 Long term (current) use of antithrombotics/antiplatelets; Z79.82 Long term (current) use of aspirin; Z79.890 Hormone replacement therapy; Z79.899 Other long term (current) drug therapy
CPT/HCPCS: 36415; 36600; 51702; 51798; 70450; 71045; 71260; 80048; 80053; 80305-QW; 81001; 82803; 83605; 84484; 85025; 85379; 85610; 85651; 85730; 86140; 87086; 87088; 87186; 93005; 96361; 96374; 96376; 99284; 99285-25; A9270-GY; G0378; G0480; J0696; J2270; J3490; J7030; J7050; Q9967